=== PATIENT | male | born 1965 | race Caucasian/White ===

== ENCOUNTER → 2020-11-18 20:21 | Outpatient (CLI) | payer OTHER, MEDICAID, SELFPAY ==
--- NOTE | 2020-11-18 20:25 | DI.RAD.S_ITS ---
PROCEDURE: XR FOOT RT MIN 3V INDICATIONS: Evaluate chronic right heel pain TECHNIQUE: 3 views of the foot were acquired. COMPARISON: None. FINDINGS: Bones: No fracture. Scattered degenerative subchondral sclerosis and spurring. Plantar calcaneal spur. 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 Prominent dorsal osteophytes present at the 1st MTP joint . Chronic appearing deformity of the 5th toe proximal phalanx which is likely posttraumatic from remote injury. Soft tissues: No tibiotalar joint effusion. Achilles tendon appears normal. 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 Dictated by: Ian Rothman M.D. on 11/19/2020 at 10:06 Approved by: Ian Rothman M.D. on 11/19/2020 at 10:11
== END ==
PROVIDERS: Family Provider Family Medicine; PCP Family Medicine; Referring Provider Family Medicine; Visit Provider Family Medicine
DX: M79.671 Pain in right foot (principal); M77.31 Calcaneal spur, right foot; M19.071 Primary osteoarthritis, right ankle and foot
CPT/HCPCS: 73630

== ENCOUNTER 2021-04-09 06:31 | Emergency (ER) | payer OTHER, MEDICAID, SELFPAY ==
[2021-04-09] VITALS (18 sets, daily range): BP systolic 110–177; BP diastolic 56–92; PULSE 57–70; RESP 9–22; TEMP 36.2; O2SAT 93–100; BMI 25.0
--- NOTE | 2021-04-09 06:24 | DI.RAD.S_ITS ---
PROCEDURE: XR CHEST 1V INDICATIONS: n/v TECHNIQUE: One view of the chest was acquired. COMPARISON: [facility], CT, CT ANGIO CHEST ABDOMEN PELVIS, 04/09/2021, 7:18. FINDINGS: Surgical changes and devices: None. Lungs and pleura: Lungs are clear. No pleural effusions or pneumothorax. Mediastinum: Mediastinal contours appear normal. Heart size is normal. Bones and chest wall: No suspicious bony lesions. Overlying soft tissues appear unremarkable. IMPRESSION: No evidence acute pulmonary process. Dictated by: Alli Villanueva M.D. on 04/09/2021 at 8:11 Approved by: Alli Villanueva M.D. on 04/09/2021 at 8:12
--- NOTE | 2021-04-09 06:24 | DI.RAD.S_ITS ---
PROCEDURE: XR ABDOMEN 1V INDICATIONS: n/v TECHNIQUE: One view of the abdomen acquired. COMPARISON: None. FINDINGS: Surgical changes and devices: None. Bowel: Bowel gas pattern is normal. Soft tissues: No suspicious abdominal calcifications. Visualized solid organ contours appear normal in size. Bones: No suspicious bony lesions. IMPRESSION: Normal bowel gas pattern. Dictated by: Alli Villanueva M.D. on 04/09/2021 at 8:12 Approved by: Alli Villanueva M.D. on 04/09/2021 at 8:13
[2021-04-09 06:53] LABS: COVID19 -Nasal RAPID Negative (Negative)
--- NOTE | 2021-04-09 06:53 | ED.NAVMDI ---
HPI - Nausea/Vomiting/Diarrhea General Chief complaint: Nausea/Vomiting/Diarrhea Stated complaint: FEVER, CHILLS, N/V Time Seen by Provider: 04/09/21 06:53 Source: patient and EMS Mode of arrival: EMS Limitations: no limitations History of Present Illness HPI Narrative: Patient is a 55-year-old male with no past medical history presenting today with confusion. was sleeping in a bed he was sleeping on the couch she woke up to him. He had incontinence was very confused and bit his tongue. His he threw up 1 or 2 times this morning as well. He initially was complaining of some abdominal pain but he is no longer having abdominal pain. He did denies any chest pain shortness of breath palpitations. He said he has not been sick he was previously in his normal state of health. EMS reported that he was a little confused when they arrived to be clearing now. He denies alcohol use and any drug use he is on no medications. He does admit to drinking coffee and smoking marijuana only. Related Data Home Medications Medication Instructions Recorded Confirmed omeprazole 20 mg capsule,delayed 20 mg PO PRN PRN #0 09/09/17 01/13/21 release Allergies Allergy/AdvReac Type Severity Reaction Status Date / Time No Known Drug Allergies Allergy Verified 04/09/21 06:36 Review of Systems Review of Systems Narrative: GENERAL: Denies chills, fatigue, malaise, fever, sweats, travel HEENT: Denies sinus pain, ear pain, sore throat, difficulty swallowing, neck pain RESPIRATORY: Denies dyspnea, cough, wheezing, hemoptysis, sputum. CARDIOVASCULAR: Denies chest pain, palpitations, orthopnea, edema GASTROINTESTINAL: Denies nausea, vomiting, abdominal pain, diarrhea, constipation, melena. : Urinary incontinence MUSCULOSKELETAL: Denies weakness, joint pain, or bony pain SKIN: No rash, no erythema, no pruritus NEUROLOGIC: Confusion PSYCHIATRIC: No concerning psychosocial issues. 12 point review of systems is negative except for those stated above and HPI Patient History Medical History GERD (gastroesophageal reflux disease) Marijuana smoker Pain of right heel Tobacco use (08/21/16) Surgical History H/O hernia repair Status post appendectomy Family History Father No problems noted. Social History Smoking Status: Former smoker Smoking Status: Former smoker Substance Use Type: marijuana Exam Initial Vital Signs Initial Vital Signs: Vital Signs Temperature 97.1 F L 04/09/21 06:47 Pulse Rate 64 04/09/21 06:47 Respiratory Rate 22 04/09/21 06:47 Blood Pressure 110/56 L 04/09/21 06:47 Pulse Oximetry 97 04/09/21 06:47 GENERAL: Slightly confused 55-year-old male HEENT: Head atraumatic,EOMI, pupils reactive, face symmetric, evidence that he bit his tongue on the left side CARDIOVASCULAR: Regular rate and rhythm without murmurs, rubs or gallops. RESPIRATORY: Breath sounds equal bilaterally, no wheezes rales or rhonchi. ABDOMEN: Soft, nontender. Normoactive bowel sounds all 4 quadrants. No guarding or rebound. EXTREMITIES: Normal range of motion, no clubbing or edema. Neurovascularly intact NEUROLOGICAL: Alert and oriented x4.Normal gait and speech. Cranial nerves II through XII grossly intact. Good [id number], good [id number], strength equal bilaterally, no dysarthria or aphasia, sensation in tact to soft touch bilaterally, no visual changes, no facial droop SKIN: Warm, dry, no laceration, no petechiae, no rashes or lesions. Course Orders Ordered: ED Orders 04/09/21 11:30 Urinalysis and Microscopic Stat Urine Drug Screen, Rapid Stat Discontinued Medications Sodium Chloride (Normal Saline 0.9%) 1,000 mls @ 1,000 mls/hr IV BOLUS ONE Stop: 04/09/21 07:23 Last Infusion: 04/09/21 11:02 Dose: 0 mls/hr Documented by: Admin: 04/09/21 07:39 Dose: 1,000 mls/hr Documented by: BRIA Sodium Chloride (Normal Saline 0.9%) 2,721.54 mls @ 907.18 mls/hr 30 ml/kg infuse over 3 hr (2721.54 ml) IV NOW ONE Stop: 04/09/21 10:10 Last Admin: 04/09/21 09:13 Dose: Not Given Documented by: TOAN Piperacillin Sod/Tazobactam (Sod 4.5 gm/ Sodium Chloride) 100 mls @ 200 mls/hr IV NOW ONE Stop: 04/09/21 07:18 Last Infusion: 04/09/21 08:11 Dose: 0 mls/hr Documented by: Admin: 04/09/21 07:38 Dose: 200 mls/hr Documented by: BRIA Vancomycin HCl (Vancomycin) 1,250 mg in 250 mls @ 250 mls/hr IV NOW ONE Stop: 04/09/21 08:17 Last Admin: 04/09/21 09:12 Dose: Not Given Documented by: TOAN Morphine Sulfate (Morphine 4 Mg/Ml Inj) 4 mg IV NOW ONE Stop: 04/09/21 06:24 Last Admin: 04/09/21 07:38 Dose: 4 mg Documented by: BRIA Vital Signs Vital signs: Vital Signs - 8 hr 04/09/21 06:47 04/09/21 07:50 04/09/21 07:55 Temperature 97.1 F L Pulse Rate 64 61 57 L Respiratory Rate 22 9 L 11 L Blood Pressure 110/56 L 139/85 Pulse Oximetry 97 93 96 04/09/21 08:00 04/09/21 08:15 04/09/21 08:30 Temperature Pulse Rate 58 L 58 L 62 Respiratory Rate 12 13 18 Blood Pressure 157/86 H Pulse Oximetry 97 98 100 04/09/21 08:45 04/09/21 09:02 04/09/21 09:03 Temperature Pulse Rate 63 70 70 Respiratory Rate 19 Blood Pressure 177/92 H Pulse Oximetry 93 100 04/09/21 09:15 04/09/21 09:30 04/09/21 09:31 Temperature Pulse Rate 60 57 L 67 Respiratory Rate Blood Pressure 172/86 H Pulse Oximetry 100 100 99 04/09/21 09:45 04/09/21 10:00 04/09/21 10:15 Temperature Pulse Rate 58 L 60 60 Respiratory Rate Blood Pressure 147/79 H Pulse Oximetry 97 97 98 04/09/21 10:30 04/09/21 10:45 04/09/21 11:00 Temperature Pulse Rate 68 60 62 Respiratory Rate Blood Pressure 144/78 H 145/82 H Pulse Oximetry 98 97 96 MDM - Nausea/Vomiting/Diarrhea Lab Data Result diagrams: 04/09/21 06:43 04/09/21 06:43 Labs: Lab Results 04/09/21 04/09/21 04/09/21 Range/Units 06:20 06:43 06:43 WBC 12.7 H (4.5-11.0) X10^3/uL RBC 5.73 (4.5-5.9) X10^6/uL Hgb 17.2 (13.5-17.5) g/dL Hct 51.7 (41-53) % MCV 90.2 (80-100) fL MCH 30.0 (26-34) PG MCHC 33.3 (30-36) % RDW 13.2 (11.6-14.8) % Plt Count 245 (150-400) X10^3/uL Neut % (Auto) 84.1 H (50-75) % Lymph % (Auto) 10.9 L (25-40) % [place] % (Auto) 4.2 (3-14) % Eos % (Auto) 0.5 L (2-4) % Baso % (Auto) 0.3 (0-2) % Neut # (Auto) 59191 H (7271-2276) /uL Lymph # (Auto) 1400 (4280-1120) /uL [place] # (Auto) 500 (0-900) /uL Eos # (Auto) 100 (0-450) /uL Baso # (Auto) 0 (0-100) /uL PT (10.1-12.7) SECONDS INR (0.9-1.3) APTT (26.4-36.2) SECONDS Sodium 137 (137-145) mmol/L Potassium 4.6 (3.4-5.1) mmol/L Chloride 106 (98-107) mmol/L Carbon Dioxide 16 L (22-32) mmol/L BUN 16 (9-20) mg/dL Creatinine 1.07 (0.66-1.25) mg/dL Estimated GFR > 60.0 (>60) mL/min BUN/Creatinine Ratio 15.0 (6-22) Glucose 219 H (70-100) mg/dL Lactate (0.7-2.1) mmol/L Calcium 9.6 (8.4-10.2) mg/dL Total Bilirubin 0.9 (0.2-1.3) mg/dL AST 37 (17-59) IU/L ALT 37 (<50) IU/L Alkaline Phosphatase 87 (38-126) U/L Total Creatine Kinase 177 H (55-170) U/L CK-MB (CK-2) 1.44 (<2.37) ng/mL CK-MB (CK-2) Rel Index 0.8 L (1.5-5.0) % Troponin I < 0.012 (0.01-0.034) ng/mL NT-Pro-B Natriuret Pep 71 (<125) pg/mL Total Protein 8.1 (6.3-8.2) g/dL Albumin 4.7 (3.5-5.0) g/dL Globulin 3.4 (1.7-4.1) g/dL Albumin/Globulin Ratio 1.4 (1.0-2.8) Lipase 55 (23-300) U/L Prolactin (3.7-17.9) ng/mL Urine Color Urine Appearance Urine pH (4.5-8.0) Ur Specific [place] (1.000-1.035) Urine Protein (Negative) Urine Glucose (UA) (Negative) g/dL Urine Ketones (NEGATIVE) Urine Occult Blood (Negative) Urine Nitrate (Negative) Urine Bilirubin (NEGATIVE) Urine Urobilinogen (0.2) E.U./dL Ur Leukocyte Esterase (NEGATIVE) Urine RBC (0-5/HPF) Urine WBC (0-5/HPF) Urine Bacteria (None) Ur Culture Indicated? U Opiates 300ng/mL cut (Negative) Ur Oxycodone Screen (Negative) Urine Methadone Screen (Negative) Ur Barbiturates Screen (Negative) U Tricyclic Antidepress (Negative) Ur Phencyclidine Scrn (Negative) Ur Amphetamines Screen (Negative) U Methamphetamines Scrn (Negative) Ur MDMA Scrn (Ecstasy) (Negative) U Benzodiazepines Scrn (Negative) Urine Cocaine Screen (Negative) U Marijuana (THC) Screen (Negative) Ethyl Alcohol ( - 10) mg/dL SARS-CoV-2 (PCR) Negative (Negative) Blood Type Antibody Screen 04/09/21 04/09/21 04/09/21 Range/Units 06:43 06:43 06:43 WBC (4.5-11.0) X10^3/uL RBC (4.5-5.9) X10^6/uL Hgb (13.5-17.5) g/dL Hct (41-53) % MCV (80-100) fL MCH (26-34) PG MCHC (30-36) % RDW (11.6-14.8) % Plt Count (150-400) X10^3/uL Neut % (Auto) (50-75) % Lymph % (Auto) (25-40) % [place] % (Auto) (3-14) % Eos % (Auto) (2-4) % Baso % (Auto) (0-2) % Neut # (Auto) (0415-2244) /uL Lymph # (Auto) (2855-6796) /uL [place] # (Auto) (0-900) /uL Eos # (Auto) (0-450) /uL Baso # (Auto) (0-100) /uL PT 12.4 (10.1-12.7) SECONDS INR 1.1 (0.9-1.3) APTT 29 (26.4-36.2) SECONDS Sodium (137-145) mmol/L Potassium (3.4-5.1) mmol/L Chloride (98-107) mmol/L Carbon Dioxide (22-32) mmol/L BUN (9-20) mg/dL Creatinine (0.66-1.25) mg/dL Estimated GFR (>60) mL/min BUN/Creatinine Ratio (6-22) Glucose (70-100) mg/dL Lactate 6.8 H* (0.7-2.1) mmol/L Calcium (8.4-10.2) mg/dL Total Bilirubin (0.2-1.3) mg/dL AST (17-59) IU/L ALT (<50) IU/L Alkaline Phosphatase (38-126) U/L Total Creatine Kinase (55-170) U/L CK-MB (CK-2) (<2.37) ng/mL CK-MB (CK-2) Rel Index (1.5-5.0) % Troponin I (0.01-0.034) ng/mL NT-Pro-B Natriuret Pep (<125) pg/mL Total Protein (6.3-8.2) g/dL Albumin (3.5-5.0) g/dL Globulin (1.7-4.1) g/dL Albumin/Globulin Ratio (1.0-2.8) Lipase (23-300) U/L Prolactin (3.7-17.9) ng/mL Urine Color Urine Appearance Urine pH (4.5-8.0) Ur Specific [place] (1.000-1.035) Urine Protein (Negative) Urine Glucose (UA) (Negative) g/dL Urine Ketones (NEGATIVE) Urine Occult Blood (Negative) Urine Nitrate (Negative) Urine Bilirubin (NEGATIVE) Urine Urobilinogen (0.2) E.U./dL Ur Leukocyte Esterase (NEGATIVE) Urine RBC (0-5/HPF) Urine WBC (0-5/HPF) Urine Bacteria (None) Ur Culture Indicated? U Opiates 300ng/mL cut (Negative) Ur Oxycodone Screen (Negative) Urine Methadone Screen (Negative) Ur Barbiturates Screen (Negative) U Tricyclic Antidepress (Negative) Ur Phencyclidine Scrn (Negative) Ur Amphetamines Screen (Negative) U Methamphetamines Scrn (Negative) Ur MDMA Scrn (Ecstasy) (Negative) U Benzodiazepines Scrn (Negative) Urine Cocaine Screen (Negative) U Marijuana (THC) Screen (Negative) Ethyl Alcohol ( - 10) mg/dL SARS-CoV-2 (PCR) (Negative) Blood Type O Positive Antibody Screen Negative 04/09/21 04/09/21 04/09/21 Range/Units 06:43 07:34 07:34 WBC (4.5-11.0) X10^3/uL RBC (4.5-5.9) X10^6/uL Hgb (13.5-17.5) g/dL Hct (41-53) % MCV (80-100) fL MCH (26-34) PG MCHC (30-36) % RDW (11.6-14.8) % Plt Count (150-400) X10^3/uL Neut % (Auto) (50-75) % Lymph % (Auto) (25-40) % [place] % (Auto) (3-14) % Eos % (Auto) (2-4) % Baso % (Auto) (0-2) % Neut # (Auto) (4116-4482) /uL Lymph # (Auto) (7313-3945) /uL [place] # (Auto) (0-900) /uL Eos # (Auto) (0-450) /uL Baso # (Auto) (0-100) /uL PT (10.1-12.7) SECONDS INR (0.9-1.3) APTT (26.4-36.2) SECONDS Sodium (137-145) mmol/L Potassium (3.4-5.1) mmol/L Chloride (98-107) mmol/L Carbon Dioxide (22-32) mmol/L BUN (9-20) mg/dL Creatinine (0.66-1.25) mg/dL Estimated GFR (>60) mL/min BUN/Creatinine Ratio (6-22) Glucose (70-100) mg/dL Lactate (0.7-2.1) mmol/L Calcium (8.4-10.2) mg/dL Total Bilirubin (0.2-1.3) mg/dL AST (17-59) IU/L ALT (<50) IU/L Alkaline Phosphatase (38-126) U/L Total Creatine Kinase (55-170) U/L CK-MB (CK-2) (<2.37) ng/mL CK-MB (CK-2) Rel Index (1.5-5.0) % Troponin I (0.01-0.034) ng/mL NT-Pro-B Natriuret Pep 66 (<125) pg/mL Total Protein (6.3-8.2) g/dL Albumin (3.5-5.0) g/dL Globulin (1.7-4.1) g/dL Albumin/Globulin Ratio (1.0-2.8) Lipase (23-300) U/L Prolactin 21.8 H (3.7-17.9) ng/mL Urine Color Urine Appearance Urine pH (4.5-8.0) Ur Specific [place] (1.000-1.035) Urine Protein (Negative) Urine Glucose (UA) (Negative) g/dL Urine Ketones (NEGATIVE) Urine Occult Blood (Negative) Urine Nitrate (Negative) Urine Bilirubin (NEGATIVE) Urine Urobilinogen (0.2) E.U./dL Ur Leukocyte Esterase (NEGATIVE) Urine RBC (0-5/HPF) Urine WBC (0-5/HPF) Urine Bacteria (None) Ur Culture Indicated? U Opiates 300ng/mL cut (Negative) Ur Oxycodone Screen (Negative) Urine Methadone Screen (Negative) Ur Barbiturates Screen (Negative) U Tricyclic Antidepress (Negative) Ur Phencyclidine Scrn (Negative) Ur Amphetamines Screen (Negative) U Methamphetamines Scrn (Negative) Ur MDMA Scrn (Ecstasy) (Negative) U Benzodiazepines Scrn (Negative) Urine Cocaine Screen (Negative) U Marijuana (THC) Screen (Negative) Ethyl Alcohol < 10 ( - 10) mg/dL SARS-CoV-2 (PCR) (Negative) Blood Type Antibody Screen 04/09/21 04/09/21 04/09/21 Range/Units 09:20 11:30 11:30 WBC (4.5-11.0) X10^3/uL RBC (4.5-5.9) X10^6/uL Hgb (13.5-17.5) g/dL Hct (41-53) % MCV (80-100) fL MCH (26-34) PG MCHC (30-36) % RDW (11.6-14.8) % Plt Count (150-400) X10^3/uL Neut % (Auto) (50-75) % Lymph % (Auto) (25-40) % [place] % (Auto) (3-14) % Eos % (Auto) (2-4) % Baso % (Auto) (0-2) % Neut # (Auto) (4057-8917) /uL Lymph # (Auto) (2074-6762) /uL [place] # (Auto) (0-900) /uL Eos # (Auto) (0-450) /uL Baso # (Auto) (0-100) /uL PT (10.1-12.7) SECONDS INR (0.9-1.3) APTT (26.4-36.2) SECONDS Sodium (137-145) mmol/L Potassium (3.4-5.1) mmol/L Chloride (98-107) mmol/L Carbon Dioxide (22-32) mmol/L BUN (9-20) mg/dL Creatinine (0.66-1.25) mg/dL Estimated GFR (>60) mL/min BUN/Creatinine Ratio (6-22) Glucose (70-100) mg/dL Lactate 2.4 H (0.7-2.1) mmol/L Calcium (8.4-10.2) mg/dL Total Bilirubin (0.2-1.3) mg/dL AST (17-59) IU/L ALT (<50) IU/L Alkaline Phosphatase (38-126) U/L Total Creatine Kinase (55-170) U/L CK-MB (CK-2) (<2.37) ng/mL CK-MB (CK-2) Rel Index (1.5-5.0) % Troponin I (0.01-0.034) ng/mL NT-Pro-B Natriuret Pep (<125) pg/mL Total Protein (6.3-8.2) g/dL Albumin (3.5-5.0) g/dL Globulin (1.7-4.1) g/dL Albumin/Globulin Ratio (1.0-2.8) Lipase (23-300) U/L Prolactin (3.7-17.9) ng/mL Urine Color Yellow Urine Appearance Clear Urine pH 6.5 (4.5-8.0) Ur Specific [place] 1.010 (1.000-1.035) Urine Protein Trace H (Negative) Urine Glucose (UA) Negative (Negative) g/dL Urine Ketones Negative (NEGATIVE) Urine Occult Blood Trace-lysed (Negative) Urine Nitrate Negative (Negative) Urine Bilirubin Negative (NEGATIVE) Urine Urobilinogen 0.2 (0.2) E.U./dL Ur Leukocyte Esterase Negative (NEGATIVE) Urine RBC 1-5/hpf (0-5/HPF) Urine WBC None seen (0-5/HPF) Urine Bacteria None seen (None) Ur Culture Indicated? Cult not indicated U Opiates 300ng/mL cut Positive H (Negative) Ur Oxycodone Screen Negative (Negative) Urine Methadone Screen Negative (Negative) Ur Barbiturates Screen Negative (Negative) U Tricyclic Antidepress Negative (Negative) Ur Phencyclidine Scrn Negative (Negative) Ur Amphetamines Screen Negative (Negative) U Methamphetamines Scrn Negative (Negative) Ur MDMA Scrn (Ecstasy) Negative (Negative) U Benzodiazepines Scrn Negative (Negative) Urine Cocaine Screen Negative (Negative) U Marijuana (THC) Screen Positive H (Negative) Ethyl Alcohol ( - 10) mg/dL SARS-CoV-2 (PCR) (Negative) Blood Type Antibody Screen Imaging Data CT scan - abdomen/pelvis: Radiologist's Impression: PROCEDURE: CT ANGIO CHEST ABDOMEN PELVIS INDICATIONS: n/v/d, fever/ chest/abd/back pain TECHNIQUE: Precontrast 5 mm thick sections acquired from the lung apices to the iliac crests. After the administration of intravenous contrast, 2.5 mm thick sections again acquired from the lung apices to the iliac crests. Maximum intensity projection (MIP) oblique sagittal and coronal reformats were then acquired. For radiation dose reduction, the following was used: automated exposure control. COMPARISON: None. FINDINGS: Image quality: Excellent. AORTA and its attachments: And its attachme aneurysmal dilatation of the ascending aorta, measuring 4.3 cm. The descending thoracic aorta has a normal caliber. No dissection. Classic three-vessel arch anatomy. Great vessel origins are widely patent. Celiac, SMA, bilateral renal arteries, and YESSENIA are widely patent. Abdominal aorta has a normal caliber. No dissection. Mild atherosclerotic calcifications. Bilateral iliacs and common femorals are patent. CHEST: Lungs and pleura: No acute airspace opacities. 5 mm left lower lobe pulmonary nodule abutting the fissure on image 144/6. 3 mm subpleural pulmonary nodule, left upper lobe, image 161/6. 3 mm subpleural pulmonary nodule, right middle lobe, image 159/6. 3 mm subpleural pulmonary nodule, right lower lobe, image 186/6. 5 mm subpleural pulmonary nodule, left lower lobe, image 187/6. No pleural effusions or pneumothorax. Central and peripheral airways are patent and normal in caliber. Mediastinum: Heart size is normal. No pericardial effusion. No mediastinal or hilar adenopathy by size criteria. Central pulmonary arteries are normal in size. Esophagus is normal in caliber. No hiatal hernias. Bones and chest wall: No axillary adenopathy by size criteria. Thyroid gland is unremarkable as visualized. No suspicious bony lesions. No vertebral body compression fractures. ABDOMEN: Vasculature: Celiac trunk and mesenteric arteries are patent. Renal arteries are also patent. Solid organs: Liver is normal in size and enhancement. Gallbladder is unremarkable . Biliary system is non dilated. Pancreas enhances normally. Spleen is normal in size and enhancement. No adrenal nodules. Both kidneys are normal in size and enhancement, without hydronephrosis. Peritoneum and bowel: No free fluid or air. Bowel loops are normal in caliber and wall thickness. Scattered colonic diverticulosis. Nodes and vessels: No retroperitoneal or mesenteric adenopathy by size criteria. Inferior vena cava is normal in morphology. Miscellaneous: No ventral hernias. PELVIS: Genitourinary: Bladder wall thickness is normal. Miscellaneous: No inguinal hernias or adenopathy. No ventral hernias. Bones: No suspicious bony lesions. No vertebral body compression fractures. Lumbar degenerative change with canal stenosis at L4-L5. Multiple mild chronic compressions, including T4, T5, T8, T9, T11, and T12. IMPRESSION: 1. Aneurysmal dilatation of the ascending aorta, measuring 4.3 cm. The aorta is otherwise unremarkable. 2. Multiple bilateral noncalcified pulmonary nodules, the largest of which measures 5 mm. Please see chart below for follow-up recommendations. 3. No evidence of acute pulmonary process. 4. No evidence of acute abdominal process. 5. Lumbar degenerative change with canal stenosis at L4-L5. 6. Scattered colonic diverticulosis. 7. Multiple chronic compression fractures. Consider DEXA bone densitometry. Fleischner Society criteria for SOLID lung nodule followup. Nodule size (mm)Low-risk patientHigh-risk patient<6 (single or multiple)No routine followup.Optional CT at 12 months. 6-8 (single or multiple)CT at 6-12 months, then optional CT at 18-24 mo.CT at 6-12 months, then CT at 18-24 months. >8 (single)CT at 3 months, PET-CT, or biopsy. Same as for low-risk pts. >8 (multiple)CT at 3-6 months, then optional CT at 18-24 mo.CT at 3-6 months, then CT at 18-24 months. Fleischner Society criteria for SUB-SOLID lung nodule followup. Solitary pure ground-glass nodules<6 mm (ground glass or part solid)No followup needed. 6 mm or larger (ground glass)CT at 6-12 months to confirm persistence, then CT every 2 years until 5 years.6 mm or larger (part solid)CT at 3-6 months to confirm persistence, then annual CT until 5 years if unchanged and solid component remains <6 mm. Multiple sub-solid nodules<6 mmCT at 3-6 months, then CT consider at 2 & 4 years for high risk patients. [address] at 3-6 months. Subsequent management based on most suspicious lesions. Recommendations do not apply to lung cancer screening, patients with immunosuppression, or patients with known primary cancer. Dictated by: Alli Villanueva M.D. on 04/09/2021 at 7:49 Approved by: Alli Villanueva M.D. on 04/09/2021 at 8:01 ECG Data Interpretation: Normal sinus rhythm rate 59 p.r. interval 168 QRS [address] changes or T-wave inversions no priors MDM Narrative Medical decision making narrative: Patient initially very difficult to get information out of. He was confused. Did not actually find out that he bit his tongue until later. His lactate came back critical at 6.8. He has mild leukocytosis afebrile sepsis antibiotics and fluids were immediately started although he was not tachycardic or hypotensive his. Prolactin came back slightly elevated at 21 with patient's history of biting tongue urinary incontinence slightly elevated prolactin and elevated lactate I suspect the patient had a first-time seizure. However at this time I am not sure why. Patient's chest x-ray did look abnormal, CT angio of chest abdomen pelvis was ordered and he is found have an incidental ascending thoracic aneurysm of 4.3 cm. He adamantly denies any chest pain. [id number] Dr. Fernando CVT at [facility] recommends referral to aneurysm screening clinic [phone] Discharge Plan Departure Patient Disposition: Home Clinical Impression: New onset seizure, Aneurysm of ascending aorta Instructions: DI for Seizure Disorder -- Adult Activity Restrictions/Additional Instructions: *You have been diagnosed with new onset seizure and ascending thoracic aneurysm *What to do: YOU ARE NOT ALLOWED TO DRIVE UNTIL EVALUATED BY NEUROLOGY Be sure to sleep regularly and eat regularly. You will need follow-up with those cardiovascular thoracic surgery and Neurology. Blood work scans today are overall reassuring. *Continue to take medications as directed *Follow up with your primary care provider in 2-[address] Fernandez is aware of findings today and will be calling to schedule an appointment. *Return to ER if you should have recurrent seizure, any chest pain palpitations passing out or any new, worsening or concerning symptoms Prescriptions: No Action omeprazole 20 MG capsule,delayed release(DR/EC) 20 mg PO PRN PRNQty: 0 RF: 0 Referrals: Serjio Fernandez MD [Primary Care Provider] -
[2021-04-09 06:57] LABS: Add Manual Diff / Slide Review NO; Basophils Absolute Auto 0 /uL (0-100); Basophils Percent Auto 0.3 % (0-2); Eosinophils Absolute Auto 100 /uL (0-450); Eosinophils Percent Auto 0.5 % (2-4); Hematocrit 51.7 % (41-53); Hemoglobin 17.2 g/dL (13.5-17.5); Lymphocytes Absolute Auto 1400 /uL (1100-4500); Lymphocytes Percent Auto 10.9 % (25-40); Mean Corpuscular HGB Conc 33.3 % (30-36); Mean Corpuscular Volume 90.2 fL (80-100); Monocytes Absolute Auto 500 /uL (0-900); Monocytes Percent Auto 4.2 % (3-14); Neutrophils Absolute Auto 10600 /uL (1500-7000); Neutrophils Percent Auto 84.1 % (50-75); Platelet Count 245 X10^3/uL (150-400); Red Blood Cell Count 5.73 X10^6/uL (4.5-5.9); Red Cell Distribution Width 13.2 % (11.6-14.8); White Blood Cell Count 12.7 X10^3/uL (4.5-11.0)
[2021-04-09 07:01] LABS: INR 1.1 (0.9-1.3); Prothrombin Time 12.4 SECONDS (10.1-12.7)
[2021-04-09 07:04] LABS: PTT Partial Thromboplastin Tim 29 SECONDS (26.4-36.2)
[2021-04-09 07:07] LABS: Ethanol (ETOH) < 10 mg/dL
[2021-04-09 07:08] LABS: Alanine Aminotransferase 37 IU/L (<50); Albumin 4.7 g/dL (3.5-5.0); Albumin Globulin Ratio 1.4 (1.0-2.8); Alkaline Phosphatase 87 U/L (38-126); Aspartate Aminotransferase 37 IU/L (17-59); Bilirubin Total 0.9 mg/dL (0.2-1.3); Blood Urea Nitrogen 16 mg/dL (9-20); Calcium 9.6 mg/dL (8.4-10.2); Carbon Dioxide 16 mmol/L (22-32); Chloride 106 mmol/L (98-107); Creatine Kinase 177 U/L (55-170); Estimated Glomerular Filt Rate > 60.0 mL/min (>60); Globulin 3.4 g/dL (1.7-4.1); Glucose 219 mg/dL (70-100); Lipase 55 U/L (23-300); Potassium 4.6 mmol/L (3.4-5.1); Sodium 137 mmol/L (137-145); Total Protein 8.1 g/dL (6.3-8.2)
[2021-04-09 07:10] LABS: Lactate (Lactic Acid) 6.8 mmol/L (0.7-2.1)
--- NOTE | 2021-04-09 07:13 | DI.CT.S_ITS ---
PROCEDURE: CT ANGIO CHEST ABDOMEN PELVIS INDICATIONS: n/v/d, fever/ chest/abd/back pain TECHNIQUE: Precontrast 5 mm thick sections acquired from the lung apices to the iliac crests. After the administration of intravenous contrast, 2.5 mm thick sections again acquired from the lung apices to the iliac crests. Maximum intensity projection (MIP) oblique sagittal and coronal reformats were then acquired. For radiation dose reduction, the following was used: automated exposure control. COMPARISON: None. FINDINGS: Image quality: Excellent. AORTA and its attachments: And its attachme aneurysmal dilatation of the ascending aorta, measuring 4.3 cm. The descending thoracic aorta has a normal caliber. No dissection. Classic three-vessel arch anatomy. Great vessel origins are widely patent. Celiac, SMA, bilateral renal arteries, and YESSENIA are widely patent. Abdominal aorta has a normal caliber. No dissection. Mild atherosclerotic calcifications. Bilateral iliacs and common femorals are patent. CHEST: Lungs and pleura: No acute airspace opacities. 5 mm left lower lobe pulmonary nodule abutting the fissure on image 144/6. 3 mm subpleural pulmonary nodule, left upper lobe, image 161/6. 3 mm subpleural pulmonary nodule, right middle lobe, image 159/6. 3 mm subpleural pulmonary nodule, right lower lobe, image 186/6. 5 mm subpleural pulmonary nodule, left lower lobe, image 187/6. No pleural effusions or pneumothorax. Central and peripheral airways are patent and normal in caliber. Mediastinum: Heart size is normal. No pericardial effusion. No mediastinal or hilar adenopathy by size criteria. Central pulmonary arteries are normal in size. Esophagus is normal in caliber. No hiatal hernias. Bones and chest wall: No axillary adenopathy by size criteria. Thyroid gland is unremarkable as visualized. No suspicious bony lesions. No vertebral body compression fractures. ABDOMEN: Vasculature: Celiac trunk and mesenteric arteries are patent. Renal arteries are also patent. Solid organs: Liver is normal in size and enhancement. Gallbladder is unremarkable . Biliary system is non dilated. Pancreas enhances normally. Spleen is normal in size and enhancement. No adrenal nodules. Both kidneys are normal in size and enhancement, without hydronephrosis. Peritoneum and bowel: No free fluid or air. Bowel loops are normal in caliber and wall thickness. Scattered colonic diverticulosis. Nodes and vessels: No retroperitoneal or mesenteric adenopathy by size criteria. Inferior vena cava is normal in morphology. Miscellaneous: No ventral hernias. PELVIS: Genitourinary: Bladder wall thickness is normal. Miscellaneous: No inguinal hernias or adenopathy. No ventral hernias. Bones: No suspicious bony lesions. No vertebral body compression fractures. Lumbar degenerative change with canal stenosis at L4-L5. Multiple mild chronic compressions, including T4, T5, T8, T9, T11, and T12. IMPRESSION: 1. Aneurysmal dilatation of the ascending aorta, measuring 4.3 cm. The aorta is otherwise unremarkable. 2. Multiple bilateral noncalcified pulmonary nodules, the largest of which measures 5 mm. Please see chart below for follow-up recommendations. 3. No evidence of acute pulmonary process. 4. No evidence of acute abdominal process. 5. Lumbar degenerative change with canal stenosis at L4-L5. 6. Scattered colonic diverticulosis. 7. Multiple chronic compression fractures. Consider DEXA bone densitometry. Fleischner Society criteria for SOLID lung nodule followup. Nodule size (mm)Low-risk patientHigh-risk patient<6 (single or multiple)No routine followup.Optional CT at 12 months. 6-8 (single or multiple)CT at 6-12 months, then optional CT at 18-24 mo.CT at 6-12 months, then CT at 18-24 months. >8 (single)CT at 3 months, PET-CT, or biopsy. Same as for low-risk pts. >8 (multiple)CT at 3-6 months, then optional CT at 18-24 mo.CT at 3-6 months, then CT at 18-24 months. Fleischner Society criteria for SUB-SOLID lung nodule followup. Solitary pure ground-glass nodules<6 mm (ground glass or part solid)No followup needed. 6 mm or larger (ground glass)CT at 6-12 months to confirm persistence, then CT every 2 years until 5 years.6 mm or larger (part solid)CT at 3-6 months to confirm persistence, then annual CT until 5 years if unchanged and solid component remains <6 mm. Multiple sub-solid nodules<6 mmCT at 3-6 months, then CT consider at 2 & 4 years for high risk patients. [address] at 3-6 months. Subsequent management based on most suspicious lesions. Recommendations do not apply to lung cancer screening, patients with immunosuppression, or patients with known primary cancer. Dictated by: Alli Villanueva M.D. on 04/09/2021 at 7:49 Approved by: Alli Villanueva M.D. on 04/09/2021 at 8:01
[2021-04-09 07:20] LABS: NT-proBNP (BNP-Adult 18+) 71 pg/mL (<125); Troponin I < 0.012 ng/mL (0.01-0.034)
[2021-04-09 07:23] LABS: CKMB % Relative Index 0.8 % (1.5-5.0); Creatine Kinase MB 1.44 ng/mL (<2.37); HEMOLYSIS 20 (0-50)
[2021-04-09] MEDS: MORPHINE 4 MG/ML INJ IV (07:38)
[2021-04-09] MEDS: PIPERACILLIN/TAZO 4.5 GM in SODIUM CHLORIDE 0.9% 100 ML 200 ML IV (07:38)
[2021-04-09] MEDS: SODIUM CHLORIDE 0.9% 1,000 ML 1000 ML IV (07:39)
[2021-04-09 07:52] LABS: NT-proBNP (BNP-Adult 18+) 66 pg/mL (<125)
[2021-04-09 08:00] LABS: Prolactin 21.8 ng/mL (3.7-17.9)
[2021-04-09 08:50] LABS: Reflexed Lactate in 2 Hours Y
--- NOTE | 2021-04-09 09:02 | DI.CT.S_ITS ---
PROCEDURE: CT HEAD/BRAIN WO CON INDICATIONS: newonset seizure TECHNIQUE: Noncontrast 4.5 mm thick angled axial sections acquired from the foramen magnum to the vertex, with coronal and sagittal reformats. For radiation dose reduction, the following was used: automated exposure control, adjustment of mA and/or kV according to patient size. COMPARISON: None. FINDINGS: Image quality: Excellent. CSF spaces: Basal cisterns are patent. No extra-axial fluid collections. Ventricles are normal in size and shape. Brain: No midline shift. No intracranial masses or hemorrhage. Felix-white matter interface is normal. Skull and face: Calvarium and visualized facial bones are intact, without suspicious lesions. Sinuses: Visualized sinuses and mastoids are clear. IMPRESSION: 1. No acute intracranial abnormalities. Dictated by: Saul Coleman M.D. on 04/09/2021 at 9:05 Approved by: Saul Coleman M.D. on 04/09/2021 at 9:13
[2021-04-09 09:33] LABS: Lactate 2HR (Lactic Acid Rflx) 2.4 mmol/L (0.7-2.1)
--- NOTE | 2021-04-09 11:28 | PC.NURSE ---
pt c/o right shoulder pain which he states has occurred before. Pt + [facility] distally. Pt refused offer of x ray, further evaluation, states he wants to go home. Currently a/o x 4.
[2021-04-09 11:35] LABS: Bacteria Urine None Seen; WBC Urine None Seen (0-5/HPF)
[2021-04-09 11:36] LABS: Appearance Urine UA CLEAR; Bilirubin Urine UA NEGATIVE (NEGATIVE); Color Urine UA YELLOW; Glucose Urine UA NEGATIVE (Negative); Ketones Urine UA NEGATIVE (NEGATIVE); Leukocyte Esterase Urine UA NEGATIVE (NEGATIVE); Nitrite Urine UA NEGATIVE (Negative); Occult Blood Urine UA TRACE-LYSED (Negative); Protein Urine UA TRACE (Negative); Ur Creatinine Normal (Normal); Ur Specific Gravity Normal (Normal); Urine pH Normal (Normal); Urobilinogen Urine UA 0.2 E.U./dL (0.2); pH Urine UA 6.5 (4.5-8.0)
[2021-04-09 11:39] LABS: UR Morphine/Opiate cutoff 300 Positive (Negative); Urine Amphetamines Negative (Negative); Urine Barbiturates Negative (Negative); Urine Benzodiazepines Negative (Negative); Urine Cocaine Negative (Negative); Urine MDMA Negative (Negative); Urine Methadone Negative (Negative); Urine Methamphetamines Negative (Negative); Urine Oxycodone Negative (Negative); Urine Phencyclidine Negative (Negative); Urine Tetrahydrocannabinol Positive (Negative); Urine Tricyclic Antidepressant Negative (Negative)
[2021-04-09 11:43] LABS: Culture Indicated Urine Cult Not Indicated; RBC Urine 1-5/HPF (0-5/HPF)
== END 2021-04-09 11:36 | disposition home or self-care (01) ==
PROVIDERS: Emergency Medicine; Emergency Provider Emergency Medicine; Family Provider Family Medicine; PCP Family Medicine
DX: R56.9 Unspecified convulsions (principal); I71.2 Thoracic aortic aneurysm, without rupture; R05 Cough; Z20.822 Contact with and (suspected) exposure to COVID-19
CPT/HCPCS: 36415; 70450; 71045; 71275; 74018; 74174; 80053; 80305; 80320; 81001; 82550; 82553; 83605; 83690; 83880; 84146; 84484; 85025; 85610; 85730; 86850; 86900; 86901; 87040; 87635; 93005; 93010; 96361; 96365; 96375; 99285; C9803; J2270; J2543

== ENCOUNTER → 2021-04-29 16:31 | Outpatient (CLI) | payer OTHER, MEDICAID, SELFPAY ==
--- NOTE | 2021-04-29 16:33 | DI.RAD.S_ITS ---
PROCEDURE: XR SHOULDER RT MIN 2V INDICATIONS: right shoulder pain after possible seizure TECHNIQUE: 3 views of the shoulder were acquired. COMPARISON: None. FINDINGS: Bones: No fractures or dislocations. No suspicious bony lesions. Visualized ribs appear intact. Moderate acromioclavicular and mild glenohumeral joint space narrowing with periarticular osteophyte formation. Soft tissues: No suspicious soft tissue calcifications. IMPRESSION: Moderate acromioclavicular and mild glenohumeral joint degeneration. Dictated by: Ryland Lanza [facility] Interpreted: Gene Meyer MD on 04/29/2021 at 16:44 Transcribed by: MAYITO on 04/29/2021 at 16:44 Approved by: Gene Meyer M.D. on 04/29/2021 at 17:15
[2021-04-29 17:24] LABS: Add Manual Diff / Slide Review NO; Basophils Absolute Auto 0 /uL (0-100); Basophils Percent Auto 0.4 % (0-2); Eosinophils Absolute Auto 200 /uL (0-450); Hematocrit 45.1 % (41-53); Lymphocytes Absolute Auto 2100 /uL (1100-4500); Lymphocytes Percent Auto 27.4 % (25-40); Mean Corpuscular HGB Conc 33.3 % (30-36); Mean Corpuscular Hemoglobin 29.9 PG (26-34); Mean Corpuscular Volume 89.8 fL (80-100); Monocytes Absolute Auto 600 /uL (0-900); Monocytes Percent Auto 7.1 % (3-14); Neutrophils Absolute Auto 4900 /uL (1500-7000); Neutrophils Percent Auto 63.1 % (50-75); Platelet Count 269 X10^3/uL (150-400); Red Blood Cell Count 5.03 X10^6/uL (4.5-5.9); Red Cell Distribution Width 13.5 % (11.6-14.8); White Blood Cell Count 7.8 X10^3/uL (4.5-11.0)
[2021-04-29 17:37] LABS: Hemoglobin A1C% w Est Avg Glu 5.6 % (4.0-6.0)
[2021-04-29 18:22] LABS: Prolactin 7.4 ng/mL (3.7-17.9)
== END ==
PROVIDERS: Family Provider Family Medicine; PCP Family Medicine; Referring Provider Family Medicine; Visit Provider Family Medicine
DX: M25.511 Pain in right shoulder (principal); M19.011 Primary osteoarthritis, right shoulder; R56.9 Unspecified convulsions; R73.9 Hyperglycemia, unspecified; G89.29 Other chronic pain
CPT/HCPCS: 36415; 73030; 83036; 84146; 85025

== ENCOUNTER 2021-06-06 13:45 | Outpatient (RCR) | payer OTHER, MEDICAID, SELFPAY ==
--- NOTE | 2021-05-08 15:06 | PT.OTN ---
Current Diagnoses Other chronic pain (05/08/21) Pain in right shoulder (05/08/21) Wedge compression fracture of unspecified thoracic vertebra, initial encounter for closed fracture (05/08/21) Other injury of muscle(s) and tendon(s) of the rotator cuff of right shoulder, subsequent encounter (05/08/21) Physical Therapy Treatment Note PT-OP-A Visit Information Start: 05/08/21 12:39 Freq: Status: Active Protocol: Document 05/08/21 11:15 DCW (Rec: 05/08/21 12:44 DCW [id number]) Out-Patient Physical Therapy Visit Information Visit Information Visit Type Initial Evaluation Visit Start Time 11:15 Visit Stop Time 11:55 Total Visit Minutes 40 Visit Number 1 Number of CHOCOLATE DIPPER Visits 0 Evaluation Information Evaluation Date 05/08/21 PT-OP-B Current Condition Start: 05/08/21 12:39 Freq: Status: Active Protocol: Document 05/08/21 11:15 DCW (Rec: 05/08/21 12:58 DCW [id number]) Current Condition History of Current Condition Onset Date 04/08/21 Current Complaints Right shoulder pain, tightness History of Current Condition Pt is a 55 year old male presenting with a one month history of very unusual right shoulder pain. Pt reports he fell asleep on a cot in his office on 04/08/21 with his right arm hanging out over the edge and the metal bar of the cot was along his shoulder. Sometime while he slept, he ended up having a seizure, and his next memory is waking up in the hospital 14 hours later . Admits that immediately upon waking up, he noted severe right shoulder pain. 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 Pt describes it as gradual pain building over a few days, all his muscles in his right shoulder, neck, and under his arm around the front of his torso get tighter and tighter, his usual tinnitus goes away, and then he'll turn his head, hear his neck pop, and suddenly everything goes right back to normal, muscles relax , and his tinnitus returns. He 'll feel better for a few days , until it all starts over again. 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 Prior Treatments and Tests Imaging when at ER following seizure uncovered multiple mild, chronic thoracic compression fractures Personal Factors Other Personal Factors That May Effect Newly diagnosed seizures, Therapy/Recovery thoracic compression fractures , Aneurysmal dilatation PT-OP-C Subjective Start: 05/08/21 12:39 Freq: Status: Active Protocol: Document 05/08/21 11:15 DCW (Rec: 05/08/21 14:44 DCW [id number]) OP-PT Subjective Patient Comments Patient Comments I'm not really worried about this run of the mill shoulder pain, my shoulders have been screwed up for a while. This new stuff is something different. Patient Questionnaires Quick Dash- Upper Extremity Quick Dash UE Score 68.18% Quick Dash UE Impairment 60 to 79% Impaired (Score 60- 79) OP-PT Pain Assessment Pain Assessment Grid Paper Pain Assessment Grid Completed Yes Location Right Back Intensity 5 Scale Used Numeric (0 - 10) Description Radiating,Tightness,Throbbing PT-OP-F Manual Assessment Start: 05/08/21 12:39 Freq: Status: Active Protocol: Document 05/08/21 11:15 DCW (Rec: 05/08/21 14:44 DCW [id number]) Manual Assessments Soft Tissue Assessment Soft Tissue Mobility Assessment Severe tightness through right lat, lower trap, teres major resulting in depression and counter clockwise rotation of right scapula PT-OP-J Posture/Palpation/Skin Start: 05/08/21 14:41 Freq: Status: Active Protocol: Document 05/08/21 11:15 DCW (Rec: 05/08/21 14:48 DCW [id number]) Posture Evaluation Position Sitting Evaluation View Posterior Scapula Posture (R) Rotated Down,(R) Depressed Comments Posture Comments Scapula positioning measured distance from spine: At inferior angle: right 19 cm , left 14 cm At spine of scapula: right 9 cm, left 8.1 cm Right spine of scapula depressed 4 cm vs left PT-OP-K Range of Motion Start: 05/08/21 12:39 Freq: Status: Active Protocol: Document 05/08/21 11:15 DCW (Rec: 05/08/21 14:44 DCW [id number]) Shoulder Goniometric Range of Motion Shoulder Right Active Shoulder ROM WFL Yes Comments Pain at end range PT-OP-L Special Tests Start: 05/08/21 12:39 Freq: Status: Active Protocol: Document 05/08/21 11:15 DCW (Rec: 05/08/21 14:44 DCW [id number]) Special Tests Shoulder Special Tests Passive ER Rotator Cuff Test Results Significant tightness at 55? Lift-Off Rotator Cuff Test Results Difficulty lifting Belly Press Test Results Negative PT-OP-M Strength Start: 05/08/21 12:39 Freq: Status: Active Protocol: Document 05/08/21 11:15 DCW (Rec: 05/08/21 14:44 DCW [id number]) Shoulder Strength Shoulder Manual Muscle Testing Left Flexion 4+ Good+ Abduction (C5) 4+ Good+ External Rotation 5 Normal Internal Rotation 5 Normal Right Flexion 3+ Fair+ Abduction (C5) 4 Good External Rotation 3+ Fair+ Internal Rotation 5 Normal PT-OP-Q Treatments Start: 05/08/21 12:39 Freq: Status: Active Protocol: Document 05/08/21 11:15 DCW (Rec: 05/08/21 12:44 DCW [id number]) Manual Therapy Treatment Soft Tissue Mobilization 1 Body Location R Lat, Teres Major, Lower Trap Mobilization Type Sustained Pressure,Trigger Point Release Intensity/Depth Deep Body Position Sidelying PT-OP-T Assessment and Plan Start: 05/08/21 12:39 Freq: Status: Active Protocol: Document 05/08/21 11:15 DCW (Rec: 05/08/21 15:05 DCW [id number]) Physical Therapy Assessment Rehab Potential Rehabilitation Potential Good Evaluation Complexity Number of Personal Factors/Comorbidities 3 or More Number of Body Systems Impaired 4 or More Clinical Presentation at Evaluation Unstable Impairments Impairments Activity Tolerance,Functional Mobility,Pain,Posture,Soft Tissue Mobility,Strength,Tone Other Concerns Barriers to Rehabilitation New onset seizure, Aneurysmal dilatation, thoracic compression fractures Goals Three Impairment MMT of right shoulder flexion and ER 3+/5 Retirement Goal (LTG) Pt to increase strength of right shoulder flexion and external rotation to at least 4/5 to improve ability to participate in pulling crab pots into his boat without difficulty. LTG Duration 06/19/21 Two Impairment Pt right scapula significantly depressed and rotated Retirement Goal (LTG) Pt to present with his right scapula measured within 2 cm from his left in regard to distance from spine LTG Duration 06/19/21 One Impairment Pt does not have an appropriate home exercise program Short Term Goal (STG) Pt to be independent and compliant with an appropriate HEP STG Duration 05/29/21 Assessment Summary Assessment Pt presents with a very unique history, reporting increased shoulder pain which began when he had a seizure when sleeping in an awkward position. Pt presents with significant tone in his right lat, lower trap, and parascapular muscles, which then depress the right scapula and rotate it counter- clockwise. Pt displays normal ROM, but has significant weakness in his right shoulder , especially flexion and ER, which both rate 3+/5. At this time, difficult to differentiate what symptoms are from this incident when he had a seizure, and which are just his normal shoulder dysfunction, which he reports is from a long career of physical jobs, but he is not worried about that part of it. Pt may benefit from skilled therapy focusing on significant STM to the right lat, lower trap, and parascapular muscles, as well as manual assessment of his cervical spine, which was not addressed today due to time constraints. Pt may benefit from advanced imaging of he does not progress with frequent skilled PT. Physical Therapy Plan Frequency and Duration Frequency of Treatment 1x/Week Duration of Treatment 6 weeks Plan of Care Start Date 05/08/21 Plan of Care End Date 06/19/21 Therapeutic Interventions Therapeutic Interventions Home Exercise Program,Joint Mobilizations,Manual Therapy, Neuromuscular Re-education, Patient/Caregiver Education, Self-Care/Home Management,Soft Tissue Mobilization, Therapeutic Activities, Therapeutic Exercises Modalities Cold Pack/Ice Massage,Electric Stimulation,Hot Packs, Ultrasound Next Visit Focus/Plan Next Note Type Treatment Note Next Visit Plan STM, cervical assessment
--- NOTE | 2021-05-08 15:07 | PT.OPPOC ---
Physical, Occupational & Speech Therapy At [facility] Current Diagnoses Other chronic pain (05/08/21) Pain in right shoulder (05/08/21) Wedge compression fracture of unspecified thoracic vertebra, initial encounter for closed fracture (05/08/21) Other injury of muscle(s) and tendon(s) of the rotator cuff of right shoulder, subsequent encounter (05/08/21) Visit Care Team Role Provider Type Serjio Fernandez MD Attending Provider Physician Primary Care Provider Referring Provider Specialty: Family Practice Address: [address] [place] [address] Email: [email or web address] Plan Of Care PT-OP-T Assessment and Plan Start: 05/08/21 12:39 Freq: Status: Active Protocol: Document 05/08/21 11:15 DCW (Rec: 05/08/21 15:05 DCW [id number]) Physical Therapy Assessment Rehab Potential Rehabilitation Potential Good Evaluation Complexity Number of Personal Factors/Comorbidities 3 or More Number of Body Systems Impaired 4 or More Clinical Presentation at Evaluation Unstable Impairments Impairments Activity Tolerance,Functional Mobility,Pain,Posture,Soft Tissue Mobility,Strength,Tone Other Concerns Barriers to Rehabilitation New onset seizure, Aneurysmal dilatation, thoracic compression fractures Goals Three Impairment MMT of right shoulder flexion and ER 3+/5 Plate Shear Operator Goal (LTG) Pt to increase strength of right shoulder flexion and external rotation to at least 4/5 to improve ability to participate in pulling crab pots into his boat without difficulty. LTG Duration 06/19/21 Two Impairment Pt right scapula significantly depressed and rotated Jail Goal (LTG) Pt to present with his right scapula measured within 2 cm from his left in regard to distance from spine LTG Duration 06/19/21 One Impairment Pt does not have an appropriate home exercise program Short Term Goal (STG) Pt to be independent and compliant with an appropriate HEP STG Duration 05/29/21 Assessment Summary Assessment Pt presents with a very unique history, reporting increased shoulder pain which began when he had a seizure when sleeping in an awkward position. Pt presents with significant tone in his right lat, lower trap, and parascapular muscles, which then depress the right scapula and rotate it counter- clockwise. Pt displays normal ROM, but has significant weakness in his right shoulder , especially flexion and ER, which both rate 3+/5. At this time, difficult to differentiate what symptoms are from this incident when he had a seizure, and which are just his normal shoulder dysfunction, which he reports is from a long career of physical jobs, but he is not worried about that part of it. Pt may benefit from skilled therapy focusing on significant STM to the right lat, lower trap, and parascapular muscles, as well as manual assessment of his cervical spine, which was not addressed today due to time constraints. Pt may benefit from advanced imaging of he does not progress with frequent skilled PT. Physical Therapy Plan Frequency and Duration Frequency of Treatment 1x/Week Duration of Treatment 6 weeks Plan of Care Start Date 05/08/21 Plan of Care End Date 06/19/21 Therapeutic Interventions Therapeutic Interventions Home Exercise Program,Joint Mobilizations,Manual Therapy, Neuromuscular Re-education, Patient/Caregiver Education, Self-Care/Home Management,Soft Tissue Mobilization, Therapeutic Activities, Therapeutic Exercises Modalities Cold Pack/Ice Massage,Electric Stimulation,Hot Packs, Ultrasound Next Visit Focus/Plan Next Note Type Treatment Note Next Visit Plan STM, cervical assessment Plan of Care Dates Plan of Care Start Date 05/08/21 Plan of Care End Date 06/19/21 Electronically Signed by: Gregory Valente, PT 05/08/21 4710 Please Sign and Return: I have reviewed this Plan of Care and certify that the skilled therapy services above are required to meet the patient?s needs. Physician Signature Date Printed Name and Credentials Clinical Instructor Signature Printed Name and Credentials
--- NOTE | 2021-05-30 14:27 | PT.OTN ---
Current Diagnoses Other chronic pain (05/30/21) Pain in right shoulder (05/30/21) Wedge compression fracture of unspecified thoracic vertebra, initial encounter for closed fracture (05/30/21) Other injury of muscle(s) and tendon(s) of the rotator cuff of right shoulder, subsequent encounter (05/30/21) Physical Therapy Treatment Note PT-OP-A Visit Information Start: 05/08/21 12:39 Freq: Status: Active Protocol: Document 05/30/21 13:45 DCW (Rec: 05/30/21 14:27 DCW [id number]) Out-Patient Physical Therapy Visit Information Visit Information Visit Type Treatment Note Visit Start Time 13:45 Visit Stop Time 14:30 Total Visit Minutes 45 Visit Number 2 Number of FINANCIAL UNDERWRITER Visits 0 Evaluation Information Evaluation Date 05/08/21 PT-OP-B Current Condition Start: 05/08/21 12:39 Freq: Status: Active Protocol: Document 05/08/21 11:15 DCW (Rec: 05/08/21 12:58 DCW [id number]) Current Condition History of Current Condition Onset Date 04/08/21 Current Complaints Right shoulder pain, tightness History of Current Condition Pt is a 55 year old male presenting with a one month history of very unusual right shoulder pain. Pt reports he fell asleep on a cot in his office on 04/08/21 with his right arm hanging out over the edge and the metal bar of the cot was along his shoulder. Sometime while he slept, he ended up having a seizure, and his next memory is waking up in the hospital 14 hours later . Admits that immediately upon waking up, he noted severe right shoulder pain. 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 Pt describes it as gradual pain building over a few days, all his muscles in his right shoulder, neck, and under his arm around the front of his torso get tighter and tighter, his usual tinnitus goes away, and then he'll turn his head, hear his neck pop, and suddenly everything goes right back to normal, muscles relax , and his tinnitus returns. He 'll feel better for a few days , until it all starts over again. 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 Prior Treatments and Tests Imaging when at ER following seizure uncovered multiple mild, chronic thoracic compression fractures Personal Factors Other Personal Factors That May Effect Newly diagnosed seizures, Therapy/Recovery thoracic compression fractures , Aneurysmal dilatation PT-OP-C Subjective Start: 05/08/21 12:39 Freq: Status: Active Protocol: Document 05/30/21 13:45 DCW (Rec: 05/30/21 14:27 DCW [id number]) OP-PT Subjective Patient Comments Patient Comments Even just that little bit we did that last time really helped, I was pretty much immediately able to lift my arm up and move it around. PT-OP-F Manual Assessment Start: 05/08/21 12:39 Freq: Status: Active Protocol: Document 05/08/21 11:15 DCW (Rec: 05/08/21 14:44 DCW [id number]) Manual Assessments Soft Tissue Assessment Soft Tissue Mobility Assessment Severe tightness through right lat, lower trap, teres major resulting in depression and counter clockwise rotation of right scapula PT-OP-J Posture/Palpation/Skin Start: 05/08/21 14:41 Freq: Status: Active Protocol: Document 05/08/21 11:15 DCW (Rec: 05/08/21 14:48 DCW [id number]) Posture Evaluation Position Sitting Evaluation View Posterior Scapula Posture (R) Rotated Down,(R) Depressed Comments Posture Comments Scapula positioning measured distance from spine: At inferior angle: right 19 cm , left 14 cm At spine of scapula: right 9 cm, left 8.1 cm Right spine of scapula depressed 4 cm vs left PT-OP-K Range of Motion Start: 05/08/21 12:39 Freq: Status: Active Protocol: Document 05/08/21 11:15 DCW (Rec: 05/08/21 14:44 DCW [id number]) Shoulder Goniometric Range of Motion Shoulder Right Active Shoulder ROM WFL Yes Comments Pain at end range PT-OP-L Special Tests Start: 05/08/21 12:39 Freq: Status: Active Protocol: Document 05/08/21 11:15 DCW (Rec: 05/08/21 14:44 DCW [id number]) Special Tests Shoulder Special Tests Passive ER Rotator Cuff Test Results Significant tightness at 55? Lift-Off Rotator Cuff Test Results Difficulty lifting Belly Press Test Results Negative PT-OP-M Strength Start: 05/08/21 12:39 Freq: Status: Active Protocol: Document 05/08/21 11:15 DCW (Rec: 05/08/21 14:44 DCW [id number]) Shoulder Strength Shoulder Manual Muscle Testing Left Flexion 4+ Good+ Abduction (C5) 4+ Good+ External Rotation 5 Normal Internal Rotation 5 Normal Right Flexion 3+ Fair+ Abduction (C5) 4 Good External Rotation 3+ Fair+ Internal Rotation 5 Normal PT-OP-Q Treatments Start: 05/08/21 12:39 Freq: Status: Active Protocol: Document 05/30/21 13:45 DCW (Rec: 05/30/21 14:27 DCW [id number]) Therapeutic Exercises Standing Exercises 2 Standing Exercise Name Shoulder Abduction Side bilateral Resistance Lv 3 Equipment Used T-band 1 Standing Exercise Name Shoulder Flexion Side bilateral Resistance Lv 3 Equipment Used T-band Manual Therapy Treatment Soft Tissue Mobilization 1 Body Location R Lat, Teres Major, Lower Trap Mobilization Type Sustained Pressure,Trigger Point Release Intensity/Depth Deep Body Position Sidelying Joint Mobilizations 1 Joint Scapulothoracic Mobs Direction Lateral Grade IV Body Position Sidelying PT-OP-T Assessment and Plan Start: 05/08/21 12:39 Freq: Status: Active Protocol: Document 05/30/21 13:45 DCW (Rec: 05/30/21 14:27 DCW [id number]) Physical Therapy Assessment Impairments Impairments Activity Tolerance,Functional Mobility,Pain,Posture,Soft Tissue Mobility,Strength,Tone Goals Three Impairment MMT of right shoulder flexion and ER 3+/5 Skilled Nursing Goal (LTG) Pt to increase strength of right shoulder flexion and external rotation to at least 4/5 to improve ability to participate in pulling crab pots into his boat without difficulty. LTG Duration 06/19/21 Two Impairment Pt right scapula significantly depressed and rotated Card Punching Machine Operator Goal (LTG) Pt to present with his right scapula measured within 2 cm from his left in regard to distance from spine LTG Duration 06/19/21 One Impairment Pt does not have an appropriate home exercise program Short Term Goal (STG) Pt to be independent and compliant with an appropriate HEP STG Duration 05/29/21 Assessment Summary Assessment Pt doing very well with HEP, working hard on self-STM using small ball. Pt already showing great progress with shoulder ROM and mobility. Physical Therapy Plan Frequency and Duration Frequency of Treatment 1x/Week Duration of Treatment 6 weeks Plan of Care Start Date 05/08/21 Plan of Care End Date 06/19/21 Therapeutic Interventions Therapeutic Interventions Home Exercise Program,Joint Mobilizations,Manual Therapy, Neuromuscular Re-education, Patient/Caregiver Education, Self-Care/Home Management,Soft Tissue Mobilization, Therapeutic Activities, Therapeutic Exercises Modalities Cold Pack/Ice Massage,Electric Stimulation,Hot Packs, Ultrasound Next Visit Focus/Plan Next Note Type Treatment Note Next Visit Plan STM, cervical assessment
--- NOTE | 2021-06-06 14:30 | PT.OTN ---
Current Diagnoses Other chronic pain (06/06/21) Pain in right shoulder (06/06/21) Wedge compression fracture of unspecified thoracic vertebra, initial encounter for closed fracture (06/06/21) Other injury of muscle(s) and tendon(s) of the rotator cuff of right shoulder, subsequent encounter (06/06/21) Physical Therapy Treatment Note PT-OP-A Visit Information Start: 05/08/21 12:39 Freq: Status: Active Protocol: Document 06/06/21 13:45 DCW (Rec: 06/06/21 14:30 DCW [id number]) Out-Patient Physical Therapy Visit Information Visit Information Visit Type Discharge Summary Visit Start Time 13:45 Visit Stop Time 14:30 Total Visit Minutes 45 Visit Number 3 Number of GOLF MANAGER Visits 0 Evaluation Information Evaluation Date 05/08/21 PT-OP-B Current Condition Start: 05/08/21 12:39 Freq: Status: Active Protocol: Document 05/08/21 11:15 DCW (Rec: 05/08/21 12:58 DCW [id number]) Current Condition History of Current Condition Onset Date 04/08/21 Current Complaints Right shoulder pain, tightness History of Current Condition Pt is a 55 year old male presenting with a one month history of very unusual right shoulder pain. Pt reports he fell asleep on a cot in his office on 04/08/21 with his right arm hanging out over the edge and the metal bar of the cot was along his shoulder. Sometime while he slept, he ended up having a seizure, and his next memory is waking up in the hospital 14 hours later . Admits that immediately upon waking up, he noted severe right shoulder pain. 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 Pt describes it as gradual pain building over a few days, all his muscles in his right shoulder, neck, and under his arm around the front of his torso get tighter and tighter, his usual tinnitus goes away, and then he'll turn his head, hear his neck pop, and suddenly everything goes right back to normal, muscles relax , and his tinnitus returns. He 'll feel better for a few days , until it all starts over again. 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 Prior Treatments and Tests Imaging when at ER following seizure uncovered multiple mild, chronic thoracic compression fractures Personal Factors Other Personal Factors That May Effect Newly diagnosed seizures, Therapy/Recovery thoracic compression fractures , Aneurysmal dilatation PT-OP-C Subjective Start: 05/08/21 12:39 Freq: Status: Active Protocol: Document 06/06/21 13:45 DCW (Rec: 06/06/21 14:30 DCW [id number]) OP-PT Subjective Patient Comments Patient Comments Pt has been feeling a lot better overall, feels his HEP and self mobs have really been helping. PT-OP-F Manual Assessment Start: 05/08/21 12:39 Freq: Status: Active Protocol: Document 05/08/21 11:15 DCW (Rec: 05/08/21 14:44 DCW [id number]) Manual Assessments Soft Tissue Assessment Soft Tissue Mobility Assessment Severe tightness through right lat, lower trap, teres major resulting in depression and counter clockwise rotation of right scapula PT-OP-J Posture/Palpation/Skin Start: 05/08/21 14:41 Freq: Status: Active Protocol: Document 05/08/21 11:15 DCW (Rec: 05/08/21 14:48 DCW [id number]) Posture Evaluation Position Sitting Evaluation View Posterior Scapula Posture (R) Rotated Down,(R) Depressed Comments Posture Comments Scapula positioning measured distance from spine: At inferior angle: right 19 cm , left 14 cm At spine of scapula: right 9 cm, left 8.1 cm Right spine of scapula depressed 4 cm vs left PT-OP-K Range of Motion Start: 05/08/21 12:39 Freq: Status: Active Protocol: Document 05/08/21 11:15 DCW (Rec: 05/08/21 14:44 DCW [id number]) Shoulder Goniometric Range of Motion Shoulder Right Active Shoulder ROM WFL Yes Comments Pain at end range PT-OP-L Special Tests Start: 05/08/21 12:39 Freq: Status: Active Protocol: Document 05/08/21 11:15 DCW (Rec: 05/08/21 14:44 DCW [id number]) Special Tests Shoulder Special Tests Passive ER Rotator Cuff Test Results Significant tightness at 55? Lift-Off Rotator Cuff Test Results Difficulty lifting Belly Press Test Results Negative PT-OP-M Strength Start: 05/08/21 12:39 Freq: Status: Active Protocol: Document 05/08/21 11:15 DCW (Rec: 05/08/21 14:44 DCW [id number]) Shoulder Strength Shoulder Manual Muscle Testing Left Flexion 4+ Good+ Abduction (C5) 4+ Good+ External Rotation 5 Normal Internal Rotation 5 Normal Right Flexion 3+ Fair+ Abduction (C5) 4 Good External Rotation 3+ Fair+ Internal Rotation 5 Normal PT-OP-Q Treatments Start: 05/08/21 12:39 Freq: Status: Active Protocol: Document 06/06/21 13:45 DCW (Rec: 06/06/21 14:30 DCW [id number]) Therapeutic Exercises Standing Exercises 3 Standing Exercise Name Pec stretch - corner Side bilateral 2 Standing Exercise Name Shoulder Abduction Side bilateral Resistance Lv 3 Equipment Used T-band 1 Standing Exercise Name Shoulder Flexion Side bilateral Resistance Lv 3 Equipment Used T-band Manual Therapy Treatment Soft Tissue Mobilization 1 Body Location R Lat, Teres Major, Lower Trap Mobilization Type Sustained Pressure,Trigger Point Release Intensity/Depth Deep Body Position Sidelying Joint Mobilizations 1 Joint Scapulothoracic Mobs Direction Lateral Grade IV Body Position Sidelying PT-OP-T Assessment and Plan Start: 05/08/21 12:39 Freq: Status: Active Protocol: Document 06/06/21 13:45 DCW (Rec: 06/06/21 14:30 DCW [id number]) Physical Therapy Assessment Impairments Impairments Activity Tolerance,Functional Mobility,Pain,Posture,Soft Tissue Mobility,Strength,Tone Goals Three Impairment MMT of right shoulder flexion and ER 3+/5 Assisted Goal (LTG) Pt to increase strength of right shoulder flexion and external rotation to at least 4/5 to improve ability to participate in pulling crab pots into his boat without difficulty. LTG Duration Met Two Impairment Pt right scapula significantly depressed and rotated Pouncer Goal (LTG) Pt to present with his right scapula measured within 2 cm from his left in regard to distance from spine LTG Duration Met One Impairment Pt does not have an appropriate home exercise program Short Term Goal (STG) Pt to be independent and compliant with an appropriate HEP STG Duration Met Progress Towards Goals Progress Towards Goals Goals Met Assessment Summary Assessment Pt has met all goals, has been incredibly compliant with HEP , and feels good going forward . Pt appropriate for discharge at this time. Physical Therapy Plan Frequency and Duration Frequency of Treatment 1x/Week Duration of Treatment 6 weeks Plan of Care Start Date 05/08/21 Plan of Care End Date 06/19/21 Therapeutic Interventions Therapeutic Interventions Home Exercise Program,Joint Mobilizations,Manual Therapy, Neuromuscular Re-education, Patient/Caregiver Education, Self-Care/Home Management,Soft Tissue Mobilization, Therapeutic Activities, Therapeutic Exercises Modalities Cold Pack/Ice Massage,Electric Stimulation,Hot Packs, Ultrasound Discharge Physical Therapy Discharge Reasons Goals Met Next Visit Focus/Plan Next Note Type Discharge Summary
== END 2021-06-09 07:50 | disposition home or self-care (01) ==
LOC: PHYS 13:45
PROVIDERS: PCP Family Medicine; Referring Provider Family Medicine; Visit Provider Family Medicine
DX: M25.511 Pain in right shoulder (principal); G89.29 Other chronic pain; S22.000A Wedge compression fracture of unspecified thoracic vertebra, initial encounter for closed fracture; S46.091D Other injury of muscle(s) and tendon(s) of the rotator cuff of right shoulder, subsequent encounter
CPT/HCPCS: 97110; 97140; 97162

== ENCOUNTER 2022-01-15 10:55 | Emergency (ER) | payer OTHER, MEDICAID, SELFPAY ==
[2022-01-15] VITALS (22 sets, daily range): BP systolic 112–142; BP diastolic 62–85; PULSE 59–87; RESP 12–18; TEMP 36.8; O2SAT 94–100
--- NOTE | 2022-01-15 11:05 | ED_ITS ---
HPI - General Adult <Jian Ramirez DO - Last Filed: 01/17/22 07:13> General Chief complaint: Seizure Stated complaint: Seizure,not taking meds. Time Seen by Provider: 01/15/22 10:58 Source: EMS Mode of arrival: EMS Limitations: altered mental status History of Present Illness HPI narrative: Patient is a 56-year-old male. Has a known history of seizures. Reportedly supposed to be taking Keppra but EMS states that they were told by the patient's that he does not take any medication because he does not like the way that it makes him feel. This reported that the patient had 3 seizures this morning. EMS reports they were told they were all short and resolved on their own. Uns ure if the patient regained consciousness in between the seizures. EMS did give 2 mg Valium EN route. Patient did have a bowel movement. Has a cut to his tongue. He is unable to provide any HPI given his mental status upon arrival. Related Data Home Medications Medication Instructions Recorded Confirmed omeprazole 20 mg capsule,delayed 20 mg PO PRN PRN #0 09/09/17 09/18/21 release levetiracetam 1,000 mg tablet 500 mg PO BID tab 09/18/21 09/18/21 (Keppra) Allergies Allergy/AdvReac Type Severity Reaction Status Date / Time No Known Drug Allergies Allergy Verified 04/29/21 16:03 Review of Systems <Jian Ramirez DO - Last Filed: 01/17/22 07:13> Review of Systems ROS Unobtainable: Unobtainable due to medical condition Patient History <Jian Ramirez DO - Last Filed: 01/17/22 07:13> Medical History Compression fracture of thoracic vertebra GERD (gastroesophageal reflux disease) Marijuana smoker Multiple lung nodules on CT Pain of right heel Tobacco use (08/21/16) Surgical History H/O hernia repair Status post appendectomy Family History Father No problems noted. Social History Smoking Status: Former smoker Smoking Status: Former smoker Substance Use Type: marijuana Exam <Jian Ramirez DO - Last Filed: 01/17/22 07:13> Initial Vital Signs Initial Vital Signs: Vital Signs Blood Pressure 127/73 01/15/22 11:03 Const General: comfortable HENMT Other HENMT:: Small bite to front of left tongue. No active bleeding. Eyes Pupils: PERRL Resp Effort & Inspection: normal respiratory effort Auscultation: clear to auscultation bilaterally Cardio Rate: regular rate Rhythm: regular rhythm GI Inspection: non-distended Palpation: soft Skin General: no rashes or lesions noted Neuro Other: Patient does not follow commands but does move all of his extremities spontaneously. He rolled from his back to his right side on his own. Extrem Other: No obvious deformities Psych Appearance: grossly normal <Gregorio Pang DO - Last Filed: 01/16/22 00:52> Initial Vital Signs Initial Vital Signs: Vital Signs Blood Pressure 127/73 01/15/22 11:03 Course <Jian Ramirez DO - Last Filed: 01/17/22 07:13> Orders Ordered: Discontinued Medications Acetaminophen (Acetaminophen 325 Mg Tablet) 975 mg PO NOW ONE Stop: 01/15/22 14:31 Last Admin: 01/15/22 15:02 Dose: 975 mg Documented by: RAMA Al Hydrox/Mg Hydrox/Simethicone 20 ml/ Lidocaine HCl 15 ml 0 ml PO NOW ONE Stop: 01/15/22 18:58 Last Admin: 01/15/22 19:03 Dose: 35 ml Documented by: RAMA Levetiracetam 500 mg/ Sodium (Chloride) 105 mls @ 420 mls/hr IV NOW ONE Stop: 01/15/22 11:00 Last Infusion: 01/15/22 11:37 Dose: 0 mls/hr Documented by: Admin: 01/15/22 11:15 Dose: 420 mls/hr Documented by: RAMA Ondansetron HCl (Ondansetron 4 Mg/2 Ml Inj) 4 mg IV NOW ONE Stop: 01/15/22 15:19 Last Admin: 01/15/22 15:24 Dose: 4 mg Documented by: RAMA Ondansetron HCl (Ondansetron 4 Mg/2 Ml Inj) 4 mg IV NOW ONE Stop: 01/15/22 19:09 Last Admin: 01/15/22 19:11 Dose: 4 mg Documented by: RAMA Pantoprazole Sodium (Pantoprazole 40 Mg Vial) 40 mg IV NOW ONE Stop: 01/15/22 19:16 Last Admin: 01/15/22 19:17 Dose: 40 mg Documented by: RAMA Vital Signs Vital signs: Vital Signs - 8 hr 01/15/22 17:00 01/15/22 17:30 01/15/22 18:00 Pulse Rate 61 61 63 Blood Pressure 128/76 135/71 126/78 Pulse Oximetry 94 99 96 01/15/22 18:30 01/15/22 19:00 01/15/22 19:01 Pulse Rate 71 60 63 Blood Pressure 118/72 140/78 Pulse Oximetry 97 99 100 01/15/22 19:30 Pulse Rate 59 L Blood Pressure 122/70 Pulse Oximetry 96 <Gregorio Pang DO - Last Filed: 01/16/22 00:52> Orders Ordered: Discontinued Medications Acetaminophen (Acetaminophen 325 Mg Tablet) 975 mg PO NOW ONE Stop: 01/15/22 14:31 Last Admin: 01/15/22 15:02 Dose: 975 mg Documented by: RAMA Al Hydrox/Mg Hydrox/Simethicone 20 ml/ Lidocaine HCl 15 ml 0 ml PO NOW ONE Stop: 01/15/22 18:58 Last Admin: 01/15/22 19:03 Dose: 35 ml Documented by: RAMA Levetiracetam 500 mg/ Sodium (Chloride) 105 mls @ 420 mls/hr IV NOW ONE Stop: 01/15/22 11:00 Last Infusion: 01/15/22 11:37 Dose: 0 mls/hr Documented by: Admin: 01/15/22 11:15 Dose: 420 mls/hr Documented by: RAMA Ondansetron HCl (Ondansetron 4 Mg/2 Ml Inj) 4 mg IV NOW ONE Stop: 01/15/22 15:19 Last Admin: 01/15/22 15:24 Dose: 4 mg Documented by: RAMA Ondansetron HCl (Ondansetron 4 Mg/2 Ml Inj) 4 mg IV NOW ONE Stop: 01/15/22 19:09 Last Admin: 01/15/22 19:11 Dose: 4 mg Documented by: RAMA Pantoprazole Sodium (Pantoprazole 40 Mg Vial) 40 mg IV NOW ONE Stop: 01/15/22 19:16 Last Admin: 01/15/22 19:17 Dose: 40 mg Documented by: RAMA Vital Signs Vital signs: Vital Signs - 8 hr 01/15/22 17:00 01/15/22 17:30 01/15/22 18:00 Pulse Rate 61 61 63 Blood Pressure 128/76 135/71 126/78 Pulse Oximetry 94 99 96 01/15/22 18:30 01/15/22 19:00 01/15/22 19:01 Pulse Rate 71 60 63 Blood Pressure 118/72 140/78 Pulse Oximetry 97 99 100 01/15/22 19:30 Pulse Rate 59 L Blood Pressure 122/70 Pulse Oximetry 96 Medical Decision Making <Jian Ramirez DO - Last Filed: 01/17/22 07:13> Medical Records Medical records reviewed: Yes I reviewed the patient's medical records. Lab Data Lab results reviewed: Yes I reviewed the patient's lab results. Result diagrams: 01/15/22 11:16 01/15/22 11:16 Labs: Lab Results 01/15/22 01/15/22 Range/Units 11:16 11:16 WBC 14.7 H (4.5-11.0) X10^3/uL RBC 5.22 (4.5-5.9) X10^6/uL Hgb 15.7 (13.5-17.5) g/dL Hct 46.2 (41-53) % MCV 88.6 (80-100) fL MCH 30.1 (26-34) PG MCHC 34.0 (30-36) % RDW 13.8 (11.6-14.8) % Plt Count 219 (150-400) X10^3/uL Neut % (Auto) 89.5 H (50-75) % Lymph % (Auto) 4.3 L (25-40) % [place] % (Auto) 6.1 (3-14) % Eos % (Auto) 0.0 L (2-4) % Baso % (Auto) 0.1 (0-2) % Neut # (Auto) 21491 H (2492-0940) /uL Lymph # (Auto) 600 L (7291-8829) /uL [place] # (Auto) 900 (0-900) /uL Eos # (Auto) 0 (0-450) /uL Baso # (Auto) 0 (0-100) /uL Sodium 141 (137-145) mmol/L Potassium 4.0 (3.4-5.1) mmol/L Chloride 113 H (98-107) mmol/L Carbon Dioxide 14 L (22-32) mmol/L BUN 13 (9-20) mg/dL Creatinine 1.01 (0.66-1.25) mg/dL Estimated GFR > 60 (>60) mL/min BUN/Creatinine Ratio 12.9 (6-22) Glucose 157 H (70-100) mg/dL Calcium 8.8 (8.4-10.2) mg/dL Ethyl Alcohol < 10 ( - 10) mg/dL Point of Care Testing Glucose POC 140 Point of care testing: Point of Care Testing Glucose POC 140 MDM Narrative Medical decision making narrative: Patient was went upon arrival. Most likely secondary to his seizures and also the Valium that he received prior to arrival. Patient has no signs of continued seizures. Patient is leukocytosis but I suspect this is related to the seizures. Low suspicion for infection. He was given Keppra. His seizure today most likely because he has not been taking his Keppra. He does have a laceration to his tongue that does not need repaired. No other signs of trauma. Patient did spend an extended period time here in the ER under observation. He was arousable but was unsteady on his feet. Was somewhat able to tolerate oral intake. His states that the last time this happened was a fairly extended recovery time after the seizure. Considered obtaining head CT but after discussion with his and the fact that this seems very similar to prior seizures we will hold on any radiologic studies for now. Care turned over to Dr. Pang you continue to evaluate until patient is able to stand and eventually be discharged home. <Gregorio Pang, DO - Last Filed: 01/16/22 00:52> Lab Data Labs: Lab Results 01/15/22 01/15/22 Range/Units 11:16 11:16 WBC 14.7 H (4.5-11.0) X10^3/uL RBC 5.22 (4.5-5.9) X10^6/uL Hgb 15.7 (13.5-17.5) g/dL Hct 46.2 (41-53) % MCV 88.6 (80-100) fL MCH 30.1 (26-34) PG MCHC 34.0 (30-36) % RDW 13.8 (11.6-14.8) % Plt Count 219 (150-400) X10^3/uL Neut % (Auto) 89.5 H (50-75) % Lymph % (Auto) 4.3 L (25-40) % [place] % (Auto) 6.1 (3-14) % Eos % (Auto) 0.0 L (2-4) % Baso % (Auto) 0.1 (0-2) % Neut # (Auto) 64697 H (9762-0969) /uL Lymph # (Auto) 600 L (6783-5377) /uL [place] # (Auto) 900 (0-900) /uL Eos # (Auto) 0 (0-450) /uL Baso # (Auto) 0 (0-100) /uL Sodium 141 (137-145) mmol/L Potassium 4.0 (3.4-5.1) mmol/L Chloride 113 H (98-107) mmol/L Carbon Dioxide 14 L (22-32) mmol/L BUN 13 (9-20) mg/dL Creatinine 1.01 (0.66-1.25) mg/dL Estimated GFR > 60 (>60) mL/min BUN/Creatinine Ratio 12.9 (6-22) Glucose 157 H (70-100) mg/dL Calcium 8.8 (8.4-10.2) mg/dL Ethyl Alcohol < 10 ( - 10) mg/dL Point of Care Testing Glucose POC 140 Point of care testing: Point of Care Testing Glucose POC [address] [facility] Narrative Medical decision making narrative: Patient was went upon arrival. Most likely secondary to his seizures and also the Valium that he received prior to arrival. Patient has no signs of continued seizures. Patient is leukocytosis but I suspect this is related to the seizures. Low suspicion for infection. He was given Keppra. His seizure today most likely because he has not been taking his Keppra. He does have a laceration to his tongue that does not need repaired. No other signs of trauma. Patient did spend an extended period time here in the ER under observation. He was arousable but was unsteady on his feet. Was somewhat able to tolerate oral intake. His states that the last time this happened was a fairly extended recovery time after the seizure. Considered obtaining head CT but after di scussion with his and the fact that this seems very similar to prior seizures we will hold on any radiologic studies for now. Care turned over to Dr. Pang you continue to evaluate until patient is able to stand and eventually be discharged home. 1800 (Bird). Patient received in sign-out from Dr. Ramirez. I reviewed the clinical course to this point and performed an independent history and physical exam. He is feeling significant improvement, is alert and oriented, at the bedside. He is able to ambulate without difficulty and assures me he will start taking his medications as directed. He has been given return precautions and questions have been answered to his apparent satisfaction Discharge Plan Departure Patient Disposition: Home Clinical Impression: Seizure Instructions: DI for Seizure Disorder -- Adult Activity Restrictions/Additional Instructions: I recommend that you start back on your Keppra. It is important that you are on this medicine to avoid having seizures. Unfortunately because of the seizure today you are not to drive for the next 6 months or until you are cleared by either your primary doctor or Neurology. Contact your primary doctor for follow-up. Also contact your neurologist for follow-up. Return to the emergency department for any new or worsening symptoms. Prescriptions: No Action omeprazole 20 MG capsule,delayed release(DR/EC) 20 mg PO PRN PRNQty: 0 0RF levetiracetam [Keppra] 1,000 mg tablet 500 mg PO BID 0RF Rx Instructions: increase by 500mg daily every two weeks up to 1.5gm bid Referrals: Serjio Fernandez MD [Primary Care Provider] -
[2022-01-15] MEDS: levETIRAcetam 500 MG in SODIUM CHLORIDE 0.9% 100 ML 420 ML IV (11:15)
[2022-01-15 11:22] LABS: Add Manual Diff / Slide Review NO; Basophils Absolute Auto 0 /uL (0-100); Basophils Percent Auto 0.1 % (0-2); Eosinophils Absolute Auto 0 /uL (0-450); Hematocrit 46.2 % (41-53); Hemoglobin 15.7 g/dL (13.5-17.5); Lymphocytes Absolute Auto 600 /uL (1100-4500); Lymphocytes Percent Auto 4.3 % (25-40); Mean Corpuscular Hemoglobin 30.1 PG (26-34); Mean Corpuscular Volume 88.6 fL (80-100); Monocytes Absolute Auto 900 /uL (0-900); Monocytes Percent Auto 6.1 % (3-14); Neutrophils Absolute Auto 13100 /uL (1500-7000); Neutrophils Percent Auto 89.5 % (50-75); Platelet Count 219 X10^3/uL (150-400); Red Blood Cell Count 5.22 X10^6/uL (4.5-5.9); Red Cell Distribution Width 13.8 % (11.6-14.8); White Blood Cell Count 14.7 X10^3/uL (4.5-11.0)
--- NOTE | 2022-01-15 11:25 | PC.NURSE ---
Pt alert and oriented to self. Does not recall seizure events, unsure where he is and the year. Pt arousable to voice, denies pain, dried blood noted around lips.
--- NOTE | 2022-01-15 11:34 | PC.NURSE ---
at bedside, states she witnessed x2 seizures lasting approximately 1 minute each. States pt was not taking Keppra r/t thinking he did not need to and past seizures were r/t increased stress. Updated on plan of care.
[2022-01-15 11:40] LABS: BUN Creatinine Ratio 12.9 (6-22); Blood Urea Nitrogen 13 mg/dL (9-20); Calcium 8.8 mg/dL (8.4-10.2); Carbon Dioxide 14 mmol/L (22-32); Chloride 113 mmol/L (98-107); Estimated Glomerular Filt Rate > 60 mL/min (>60); Ethanol (ETOH) < 10 mg/dL; Glucose 157 mg/dL (70-100); HEMOLYSIS < 15 (0-50); Sodium 141 mmol/L (137-145)
--- NOTE | 2022-01-15 12:38 | PC.NURSE ---
Pt aaox4/4, able to stand and move to commode independently. Impulsive with movements, staff at standby.
[2022-01-15] MEDS: ACETAMINOPHEN 325 MG TABLET 975 MG PO (15:02)
[2022-01-15] MEDS: ONDANSETRON 4 MG/2 ML INJ IV ×2 (15:24→19:11)
--- NOTE | 2022-01-15 15:43 | PC.NURSE ---
Pt easily arousable, aaox4/4, able to move and adjust self. Reports he is tired and often falls asleep in middle of conversation, impulsive with movements and requests. Per this is usual for him post seizure, Dr. Ramirez spoke to pt and family, continuing to monitor.
[2022-01-15] MEDS: MAG HYDROX/ALUMINUM/SIMETH SUS 20 ML, LIDOCAINE VISCOUS 2% 15 ML PO (19:03)
[2022-01-15] MEDS: PANTOPRAZOLE 40 MG VIAL IV (19:17)
--- NOTE | 2022-01-15 19:24 | PC.NURSE ---
Pt reported sour stomach, medication administered and pt vomitted. Dr Pang aware and IV medications administered. Pt inquiring about discharge, educated pt about walking, pt assisted in plan to reassess in approximately 15 minutes and attempt walking trial.
--- NOTE | 2022-01-15 19:51 | PC.NURSE ---
Pt continues to be drowsy, ambulated steady down hallway and back.
== END 2022-01-15 20:22 | disposition home or self-care (01) ==
PROVIDERS: Emergency Medicine; Emergency Provider Emergency Medicine; PCP Family Medicine
DX: R56.9 Unspecified convulsions (principal); Z79.899 Other long term (current) drug therapy
CPT/HCPCS: 36415; 80048; 80320; 82962; 85025; 96365; 96375; 96376; 99284; C9113; J1953; J2405

== ENCOUNTER → 2022-03-30 11:37 | Outpatient (CLI) | payer OTHER, MEDICAID, SELFPAY | PROVIDERS: PCP Family Medicine; Referring Provider Family Medicine; Visit Provider Family Medicine | DX: S22.000S Wedge compression fracture of unspecified thoracic vertebra, sequela (principal) | CPT/HCPCS: 77080 ==

== ENCOUNTER → 2022-08-07 09:59 | Outpatient (CLI) | payer OTHER, MEDICAID, SELFPAY ==
[2022-08-07 10:55] LABS: Add Manual Diff / Slide Review NO; Basophils Absolute Auto 0 /uL (0-100); Basophils Percent Auto 0.2 % (0-2); Eosinophils Absolute Auto 100 /uL (0-450); Eosinophils Percent Auto 1.3 % (2-4); Hematocrit 46.2 % (41-53); Hemoglobin 15.6 g/dL (13.5-17.5); Lymphocytes Absolute Auto 2100 /uL (1100-4500); Lymphocytes Percent Auto 37.7 % (25-40); Mean Corpuscular HGB Conc 33.8 % (30-36); Mean Corpuscular Volume 88.7 fL (80-100); Monocytes Absolute Auto 400 /uL (0-900); Monocytes Percent Auto 7.9 % (3-14); Neutrophils Absolute Auto 2900 /uL (1500-7000); Neutrophils Percent Auto 52.9 % (50-75); Platelet Count 216 X10^3/uL (150-400); Red Blood Cell Count 5.21 X10^6/uL (4.5-5.9); Red Cell Distribution Width 13.3 % (11.6-14.8); White Blood Cell Count 5.6 X10^3/uL (4.5-11.0)
[2022-08-07 11:00] LABS: Hemoglobin A1C% w Est Avg Glu 5.9 % (4.0-6.0)
[2022-08-07 11:23] LABS: Alanine Aminotransferase 23 IU/L (<50); Albumin 4.5 g/dL (3.5-5.0); Albumin Globulin Ratio 1.5 (1.0-2.8); Alkaline Phosphatase 68 U/L (38-126); Aspartate Aminotransferase 21 IU/L (17-59); BUN Creatinine Ratio 14.6 (6-22); Bilirubin Total 0.6 mg/dL (0.2-1.3); Blood Urea Nitrogen 13 mg/dL (9-20); Calcium 9.6 mg/dL (8.4-10.2); Carbon Dioxide 27 mmol/L (22-32); Chloride 101 mmol/L (98-107); Cholesterol 206 mg/dL (140-199); Estimated Glomerular Filt Rate > 60 mL/min (>60); Glucose 99 mg/dL (70-100); HDL Cholesterol 43 mg/dL (40-60); HEMOLYSIS < 15 (0-50); LDL Cholesterol Calculated 146 mg/dL (<100); Potassium 4.6 mmol/L (3.4-5.1); Sodium 138 mmol/L (137-145); Total Protein 7.5 g/dL (6.3-8.2); Triglycerides 83 mg/dL (35-150)
[2022-08-07 11:53] LABS: TSH w/ Reflex to FT4 0.75 uIU/mL (0.47-4.68)
[2022-08-11 09:48] LABS: Lamotrigine Lamictal <1.0 ug/mL (2.0-20.0)
== END ==
PROVIDERS: PCP Family Medicine; Referring Provider Family Medicine; Visit Provider Family Medicine
DX: R06.09 Other forms of dyspnea (principal); R53.83 Other fatigue; R56.9 Unspecified convulsions
CPT/HCPCS: 36415; 80053; 80061; 80175; 83036; 84443; 85025

== ENCOUNTER → 2022-09-14 09:00 | Outpatient (CLI) | payer OTHER, MEDICAID, SELFPAY ==
[2022-09-17 13:32] LABS: Lamotrigine Lamictal 2.2 ug/mL (2.0-20.0)
== END ==
PROVIDERS: PCP Family Medicine; Referring Provider Family Medicine; Visit Provider Family Medicine
DX: G40.909 Epilepsy, unspecified, not intractable, without status epilepticus (principal); I71.21 Aneurysm of the ascending aorta, without rupture
CPT/HCPCS: 36415; 80175

== ENCOUNTER → 2022-09-18 16:42 | Outpatient (CLI) | payer OTHER, MEDICAID, SELFPAY ==
--- NOTE | 2022-09-18 16:43 | DI.MRI.S_ITS ---
PROCEDURE: MR HEAD/BRAIN WO CON INDICATIONS: vision changes, seizure history TECHNIQUE: Noncontrast axial T1 spin echo, axial T2 fast spin echo, sagittal and axial FLAIR, axial gradient echo, axial diffusion and ADC, coronal thin-slice T2 FSE through the brain. Optional contrast, followed by axial and coronal and sagittal 3D VIBE or T1 spin echo with fat saturation sequences through the brain. COMPARISON: [facility], CT, CT HEAD WITHOUT CONTRAST, 08/22/2021, 12:16. FINDINGS: Image quality: Excellent. CSF spaces: Ventricles are normal in size and shape. Basal cisterns are patent. No extra-axial fluid collections. Brain: No intracranial bleeds or mass effects. No abnormal intracranial enhancement. Felix-white matter interface appears intact. Diffusion weighted images demonstrate no acute ischemic insults. Brainstem appear normal. Normal intravascular flow voids are present. The hippocampal regions appear normal and symmetric in morphology. Several scattered foci of T2 weighted hyperintensity can be seen within the cerebral hemispheres, primarily within the periventricular and deep white matter and more prominent on the left than on the right. No definite involvement of the corpus callosum or brainstem can be seen. Skull and face: Calvarial marrow signal is normal. Orbits appear normal. Sinuses: Sinuses and mastoids are clear. IMPRESSION: No cause of seizures identified. The hippocampi demonstrate a normal, symmetric appearance. Scattered foci of T2 weighted hyperintensity can be seen within the white matter. These are nonspecific, yet are statistically most likely related to early chronic small vessel ischemic change in a patient of this age. Dictated by: Adrian Hernandez M.D. on 09/18/2022 at 17:00 Approved by: Adrian Hernandez M.D. on 09/18/2022 at 17:02
== END ==
PROVIDERS: PCP Family Medicine; Referring Provider Family Medicine; Visit Provider Family Medicine
DX: G40.909 Epilepsy, unspecified, not intractable, without status epilepticus (principal); H53.9 Unspecified visual disturbance
CPT/HCPCS: 70551

== ENCOUNTER 2022-10-18 08:48 | Emergency (ER) | payer OTHER, MEDICAID, SELFPAY ==
[2022-10-18] VITALS (18 sets, daily range): BP systolic 125–156; BP diastolic 62–100; PULSE 62–76; RESP 15–44; TEMP 36; O2SAT 94–100
[2022-10-18] MEDS: SODIUM CHLORIDE 0.9% 1,000 ML 1000 ML IV ×2 (09:09→12:44)
[2022-10-18] MEDS: ONDANSETRON 4 MG/2 ML INJ IV (09:10)
[2022-10-18] MEDS: KETOROLAC 30 MG/ML VIAL 15 MG IV (09:12)
[2022-10-18 09:14] LABS: Add Manual Diff / Slide Review NO; Basophils Absolute Auto 0 /uL (0-100); Basophils Percent Auto 0.2 % (0-2); Eosinophils Absolute Auto 100 /uL (0-450); Eosinophils Percent Auto 0.5 % (2-4); Hematocrit 51.6 % (41-53); Hemoglobin 16.8 g/dL (13.5-17.5); Lymphocytes Absolute Auto 3500 /uL (1100-4500); Lymphocytes Percent Auto 23.5 % (25-40); Mean Corpuscular HGB Conc 32.5 % (30-36); Mean Corpuscular Hemoglobin 30.2 PG (26-34); Monocytes Absolute Auto 700 /uL (0-900); Monocytes Percent Auto 4.7 % (3-14); Neutrophils Absolute Auto 10400 /uL (1500-7000); Neutrophils Percent Auto 71.1 % (50-75); Platelet Count 260 X10^3/uL (150-400); Red Blood Cell Count 5.55 X10^6/uL (4.5-5.9); Red Cell Distribution Width 13.6 % (11.6-14.8); White Blood Cell Count 14.7 X10^3/uL (4.5-11.0)
[2022-10-18 09:23] LABS: Alanine Aminotransferase 47 IU/L (<50); Albumin Globulin Ratio 1.4 (1.0-2.8); Alkaline Phosphatase 96 U/L (38-126); Aspartate Aminotransferase 34 IU/L (17-59); BUN Creatinine Ratio 10.1 (6-22); Bilirubin Total 0.7 mg/dL (0.2-1.3); Blood Urea Nitrogen 11 mg/dL (9-20); Calcium 9.2 mg/dL (8.4-10.2); Carbon Dioxide 11 mmol/L (22-32); Chloride 105 mmol/L (98-107); Estimated Glomerular Filt Rate > 60 mL/min (>60); Ethanol (ETOH) < 10 mg/dL; Globulin 3.6 g/dL (1.7-4.1); Glucose 149 mg/dL (70-100); HEMOLYSIS 17 (0-50); Sodium 142 mmol/L (137-145); Total Protein 8.6 g/dL (6.3-8.2)
--- NOTE | 2022-10-18 09:34 | PC.NURSE ---
is at pt bedside. she states pt missed dose of seizure medications on accident. she states pt has history of biting his tongue everytime he has seizure and he often has severe nausea afterwards. informed her we gave anti nausea medications and pain meds. bed plugged in to wall, education provided on how to use beds, more warm blankets given to patient.
[2022-10-18 09:44] LABS: Creatine Kinase 184 U/L (55-170); Lipase 38 U/L (23-300)
[2022-10-18 09:57] LABS: Troponin I 0.018 ng/mL (0.01-0.034)
[2022-10-18 09:59] LABS: CKMB % Relative Index 0.9 % (1.5-5.0); Creatine Kinase MB 1.72 ng/mL (<2.37)
[2022-10-18] MEDS: LORazepam 2 MG/ML INJ 1 MG IV (10:05)
--- NOTE | 2022-10-18 11:17 | ED_ITS ---
HPI - Seizure General Chief Complaint: Seizure Stated Complaint: seizure x 2 today Time Seen by Provider: 10/18/22 08:56 Source: patient and EMS Mode of arrival: EMS History of Present Illness HPI Narrative: Patient is a 57-year-old male history of seizure disorder and anxiety presenting today with 2 seizures. reports that he was stressed out yesterday having some family stress he was tired in the night missed his night dose of la motrigine this morning she woke up noted that he was breathing weird with probable seizure. Lasted for about a minute and a half. Sounds as though he completely recovered went to take a shower came back to bed and then had another minute and a half seizure of tonic-clonic shaking and bit his tongue. At that point EMS was called. Postictal. Now complaining of headache remains a little postictal able to answer some questions. is at bedside. It appears that his last seizure was December 2021. reports that he had head CT as outpatient a couple months ago there was no tumor identified. He is followed by Neurology but she is not sure who the doctor is currently a. She does not report any infection no alcohol use. Related Data Home Medications Medication Instructions Recorded Confirmed omeprazole 20 mg capsule,delayed 20 mg PO PRN PRN ##0 09/09/17 09/10/22 release lamotrigine 100 mg tablet 100 mg PO BID 09/10/22 09/10/22 Previous Rx's Medication Instructions Recorded clonazepam 0.5 mg tablet 0.5 mg PO BID PRN anxiety #30 tabs 10/05/22 Allergies Allergy/AdvReac Type Severity Reaction Status Date / Time levetiracetam [From [facility]] Allergy Unknown Verified 10/18/22 08:49 Patient History Medical History Ascending aortic aneurysm Compression fracture of thoracic vertebra Epilepsy GERD (gastroesophageal reflux disease) Hallucinogenic mushrooms use disorder, mild Marijuana smoker Multiple lung nodules on CT Pain of right heel Tobacco use (08/21/16) Surgical History H/O hernia repair Status post appendectomy Family History Father No problems noted. Social History Smoking Status: Former smoker Smoking Status: Former smoker Substance Use Type: marijuana Exam Initial Vital Signs Initial Vital Signs: Vital Signs Pulse Rate 69 10/18/22 08:58 Respiratory Rate 18 10/18/22 08:58 Pulse Oximetry 98 10/18/22 08:58 GENERAL: Alert 57-year-old male moaning HEENT: Head atraumatic,EOMI, pupils reactive, face symmetric, moist mucous membranes CARDIOVASCULAR: Regular rate and rhythm without murmurs, rubs or gallops. RESPIRATORY: Breath sounds equal bilaterally, no wheezes rales or rhonchi. ABDOMEN: Soft, nontender. Normoactive bowel sounds all 4 quadrants. No guarding or rebound. EXTREMITIES: Normal range of motion, no clubbing or edema. Neurovascularly intact NEUROLOGICAL: Moaning moving in all extremities postictal SKIN: Warm, dry, no laceration, no petechiae, no rashes or lesions. Course Orders Ordered: ED Orders 10/18/22 11:30 Troponin I Stat 10/18/22 12:33 CT angio chest abdomen pelvis Stat 10/18/22 13:25 Trop I [Troponin I] Stat Discontinued Medications Acetaminophen (Acetaminophen 325 Mg Tablet) 650 mg PO NOW ONE Stop: 10/18/22 12:31 Last Admin: 10/18/22 15:11 Dose: Not Given Documented By: YANIRA Sodium Chloride (Normal Saline 0.9%) 1,000 mls @ 1,000 mls/hr IV BOLUS ONE Stop: 10/18/22 10:03 Last Infusion: 10/18/22 10:15 Dose: 0 mls/hr Documented By: Admin: 10/18/22 09:09 Dose: 1,000 mls/hr Documented By: MARIA T Sodium Chloride (Normal Saline 0.9%) 1,000 mls @ 1,000 mls/hr IV BOLUS ONE Stop: 10/18/22 10:07 Last Admin: 10/18/22 09:11 Dose: Not Given Documented By: MARIA T Sodium Chloride (Normal Saline 0.9%) 1,000 mls @ 1,000 mls/hr IV BOLUS ONE Stop: 10/18/22 13:32 Last Infusion: 10/18/22 14:06 Dose: 0 mls/hr Documented By: Admin: 10/18/22 12:44 Dose: 1,000 mls/hr Documented By: YANIRA Ketorolac Tromethamine (Ketorolac 30 Mg/Ml Vial) 15 mg IV NOW ONE Stop: 10/18/22 09:05 Last Admin: 10/18/22 09:12 Dose: 15 mg Documented By: MARIA T Lorazepam (Lorazepam 2 Mg/Ml Inj) 1 mg IV NOW ONE Stop: 10/18/22 09:36 Last Admin: 10/18/22 10:05 Dose: 1 mg Documented By: YANIRA Morphine Sulfate (Morphine 2 Mg/Ml Inj) 2 mg IV NOW ONE Stop: 10/18/22 12:35 Last Admin: 10/18/22 12:43 Dose: 2 mg Documented By: YANIRA Ondansetron HCl (Ondansetron 4 Mg/2 Ml Inj) 4 mg IV NOW ONE Stop: 10/18/22 09:09 Last Admin: 10/18/22 09:10 Dose: 4 mg Documented By: MARIA T Ondansetron HCl (Ondansetron 4 Mg/2 Ml Inj) 4 mg IV NOW ONE Stop: 10/18/22 09:09 Last Admin: 10/18/22 09:11 Dose: Not Given Documented By: MARIA T Vital Signs Vital signs: Vital Signs - 8 hr 10/18/22 12:00 10/18/22 12:00 10/18/22 12:30 Pulse Rate 68 Respiratory Rate Blood Pressure 143/80 H 128/62 Pulse Oximetry 94 10/18/22 12:30 10/18/22 13:00 10/18/22 13:02 Pulse Rate 63 76 Respiratory Rate 44 H Blood Pressure 156/83 H Pulse Oximetry 95 95 10/18/22 13:02 10/18/22 13:30 10/18/22 14:00 Pulse Rate 67 76 74 Respiratory Rate 19 16 16 Blood Pressure Pulse Oximetry 96 95 10/18/22 14:30 10/18/22 15:00 10/18/22 15:06 Pulse Rate 71 68 67 Respiratory Rate 34 H 15 16 Blood Pressure Pulse Oximetry 97 95 96 10/18/22 15:06 Pulse Rate Respiratory Rate Blood Pressure 146/80 H Pulse Oximetry MDM - Seizure Lab Data 10/18/22 08:54 10/18/22 08:54 Labs: Lab Results 01/29/23 01/29/23 01/29/23 Range/Units 08:54 08:54 09:31 WBC 14.7 H (4.5-11.0) X10^3/uL RBC 5.55 (4.5-5.9) X10^6/uL Hgb 16.8 (13.5-17.5) g/dL Hct 51.6 (41-53) % MCV 93.0 (80-100) fL MCH 30.2 (26-34) PG MCHC 32.5 (30-36) % RDW 13.6 (11.6-14.8) % Plt Count 260 (150-400) X10^3/uL Neut % (Auto) 71.1 (50-75) % Lymph % (Auto) 23.5 L (25-40) % [place] % (Auto) 4.7 (3-14) % Eos % (Auto) 0.5 L (2-4) % Baso % (Auto) 0.2 (0-2) % Neut # (Auto) 15124 H (9426-0505) /uL Lymph # (Auto) 3500 (3631-6200) /uL [place] # (Auto) 700 (0-900) /uL Eos # (Auto) 100 (0-450) /uL Baso # (Auto) 0 (0-100) /uL Sodium 142 (137-145) mmol/L Potassium 4.0 (3.4-5.1) mmol/L Chloride 105 (98-107) mmol/L Carbon Dioxide 11 L (22-32) mmol/L BUN 11 (9-20) mg/dL Creatinine 1.09 (0.66-1.25) mg/dL Estimated GFR > 60 (>60) mL/min BUN/Creatinine Ratio 10.1 (6-22) Glucose 149 H (70-100) mg/dL Calcium 9.2 (8.4-10.2) mg/dL Total Bilirubin 0.7 (0.2-1.3) mg/dL AST 34 (17-59) IU/L ALT 47 (<50) IU/L Alkaline Phosphatase 96 (38-126) U/L Total Creatine Kinase 184 H (55-170) U/L CK-MB (CK-2) 1.72 (<2.37) ng/mL CK-MB (CK-2) Rel Index 0.9 L (1.5-5.0) % Troponin I 0.018 (0.01-0.034) ng/mL Total Protein 8.6 H (6.3-8.2) g/dL Albumin 5.0 (3.5-5.0) g/dL Globulin 3.6 (1.7-4.1) g/dL Albumin/Globulin Ratio 1.4 (1.0-2.8) Lipase 38 (23-300) U/L Ethyl Alcohol < 10 ( - 10) mg/dL 10/18/22 10/18/22 Range/Units 11:30 13:25 WBC (4.5-11.0) X10^3/uL RBC (4.5-5.9) X10^6/uL Hgb (13.5-17.5) g/dL Hct (41-53) % MCV (80-100) fL MCH (26-34) PG MCHC (30-36) % RDW (11.6-14.8) % Plt Count (150-400) X10^3/uL Neut % (Auto) (50-75) % Lymph % (Auto) (25-40) % [place] % (Auto) (3-14) % Eos % (Auto) (2-4) % Baso % (Auto) (0-2) % Neut # (Auto) (1439-3387) /uL Lymph # (Auto) (0650-7233) /uL [place] # (Auto) (0-900) /uL Eos # (Auto) (0-450) /uL Baso # (Auto) (0-100) /uL Sodium (137-145) mmol/L Potassium (3.4-5.1) mmol/L Chloride (98-107) mmol/L Carbon Dioxide (22-32) mmol/L BUN (9-20) mg/dL Creatinine (0.66-1.25) mg/dL Estimated GFR (>60) mL/min BUN/Creatinine Ratio (6-22) Glucose (70-100) mg/dL Calcium (8.4-10.2) mg/dL Total Bilirubin (0.2-1.3) mg/dL AST (17-59) IU/L ALT (<50) IU/L Alkaline Phosphatase (38-126) U/L Total Creatine Kinase (55-170) U/L CK-MB (CK-2) (<2.37) ng/mL CK-MB (CK-2) Rel Index (1.5-5.0) % Troponin I 0.042 H 0.055 H (0.01-0.034) ng/mL Total Protein (6.3-8.2) g/dL Albumin (3.5-5.0) g/dL Globulin (1.7-4.1) g/dL Albumin/Globulin Ratio (1.0-2.8) Lipase (23-300) U/L Ethyl Alcohol ( - 10) mg/dL Imaging Data CT scan - chest: Radiologist's Impression: Signed Patient: Héctor Paiz MR#: [id number] : 1965 Acct:[id number] Age/Sex: 57 / M Date of Service: 10/18/22 Loc: ED Accession Number: [id number] ?? Procedure: CT angio chest abdomen pelvis Ordering Provider: Hellen Martínez D.O. PROCEDURE:? CT ANGIO CHEST ABDOMEN PELVIS ? INDICATIONS:? elevated trop known thoracic aneurysm ? TECHNIQUE:? Precontrast 5 mm thick sections acquired from the lung apices to the iliac crests.? After the administration of intravenous contrast, 2.5 mm thick sections again acquired from the lung apices to the iliac crests.? Maximum intensity projection (MIP) oblique sagittal and coronal reformats were then acquired.? For radiation dose reduction, the following was used:? automated exposure control.? ? COMPARISON:? [facility] [place], CT, CT ANGIO CHEST ABDOMEN PELVIS, 04/09/2021, 7:1 8. ? FINDINGS:? Image quality:? Excellent.? ? AORTA:? The ascending thoracic aorta is again noted to be mildly aneurysmal, measuring 4.4 cm transversely on coronal images.? The distal aortic arch is also aneurysmal, measuring 0.6 cm.? The descending thoracic aorta measured transversely at the level of the right main pulmonary artery is also mildly aneurysmal, measuring 3.6 cm. ? No periaortic inflammatory changes are seen.? No findings dissection are seen. ? The abdominal aorta demonstrates normal caliber.? Atherosclerotic change can be seen throughout.? The right common iliac artery is ectatic at 2 cm. ? ? CHEST:? Lungs and pleura:? Mild dependent atelectasis can be seen at the lung bases, right worse than left.? No pleural effusions or pneumothorax.? Central and peripheral airways are patent and normal in caliber.? ? Mediastinum:? Heart size is normal.? No pericardial effusion.? There is [id number] coronary artery calcification.? No mediastinal or hilar adenopathy by size crite andrea.? Central pulmonary arteries are normal in size.? Esophagus is normal in caliber.? No hiatal hernias.? ? Bones and chest wall:? No axillary adenopathy by size criteria.? Thyroid gland demonstrates no significant abnormality.? No suspicious bony lesions.? No vertebral body compression fractures.? ? ? ABDOMEN:? Vasculature:? Celiac trunk and mesenteric arteries are patent.? Renal arteries are also patent.? ? Solid organs:? Liver is normal in size and enhancement.? Gallbladder wall is not thickened.? Biliary system is non dilated.? Pancreas enhances normally.? Spleen is normal in size and enhancement.? No adrenal nodules.? Both kidneys are normal in size and enhancement, without hydronephrosis.? ? Peritoneum and bowel:? No free fluid or air.? Bowel loops are normal in caliber and wall thickness.? ? Nodes and vessels:? No retroperitoneal or mesenteric adenopathy by size criteria.? Inferior vena cava is normal in morphology.? Atherosclerotic calcification is noted.? ? Miscellaneous:? No ventral hernias.? ? ? PELVIS:? Genitourinary:? Bladder wall thickness is normal.? ? Miscellaneous:? No inguinal hernias or adenopathy.? No ventral hernias.? ? Bones:? No suspicious bony lesions.? Mild, chronic anterior wedge deformities can be seen within the thoracolumbar junction. Incidental note is made of a limbus vertebral body involving the anterior superior portion of the L4 vertebral body.? Moderate central canal narrowing is seen at L4-L5.? Focal L5-S1 degenerative change is seen.? Milder degenerative changes are seen elsewhere.? IMPRESSION:? No acute abnormality is seen. ? There is again seen mild thoracic aortic aneurysm, with the ascending thoracic aorta measuring 4.4 cm transversely. ? Additional findings:? Dependent atelectasis [id number] coronary artery calcification Midthoracic anterior wedge deformities, chronic L4 limbus vertebral body Focal lower lumbar spine degenerative change ? ? ? Dictated by: Adrian Hernandez M.D. on 10/18/2022 at 12:12 ? ? Approved by: Adrian Hernandez M.D. on 10/18/2022 at 12:23 ? ECG Data Interpretation: EKG 1. Sinus rhythm rate 57 IA interval 174 QRS 100 QTC 4 O2 peaked T-waves in V3 V4 V5 no ST depressions T-wave inversion noted in lead [address] elevation in V2, previous EKG in 2020 does show peaked T-wave in V3 today V4 and V5 local little bit worse than they did ST segment in V2 looks similar. EKG 2. Repeat EKG sinus rhythm T-waves look improved persistent possible ST elevation in V2 with out worsening EKG 3. Sinus rhythm no ST depression really looks like early repolarization no significant changes MDM Narrative Medical decision making narrative: Patient is a 57-year-old male history of seizures presenting today with seizure to seizures possibly from stress induced yesterday along with did missing 2 doses of lamotrigine although the davis do it. No infection is found. He denies any symptoms. Initial EKG possibly concerning with peaked T-waves initial troponin was negative. Repeat EKG did not show any changes repeat troponin however was elevated 0.042 and 3rd troponin 0.05. Patient has absolutely no chest pain. CT angio was done for his thoracic aneurysm which is known. It appears stable and is 4.4 cm. At this time I think indeterminate troponin is likely secondary to seizure activity. I do not think is clinically relevant. He has no EKG changes and is overall completely asymptomatic. Patient was given 1 dose of Ativan for his postictal.. Becoming more awake alert and appropriate. Feeling ready able to go home. Recommend that he follow-up with his PCP and neurologist. Discharge Plan Departure Patient Disposition: Home Clinical Impression: Seizure Instructions: DI for Seizure Disorder -- Adult Activity Restrictions/Additional Instructions: DON't DRIVE UNTIL EVALUATION WITH NEUROLOGY *You have been diagnosed with breakthrough seizure *What to do: At this time he likely had a breakthrough seizure unclear exactly what the reason is. Your heart troponin was minimally elevated at 0.05 this is not positive possibly from her seizure. However if you should have any significant chest pain shortness of breath or discomfort please return to the emergency department. *Continue to take medications as directed *Follow up with your primary care provider in 2-3 days or call [phone] *Return to ER if you should have chest pain palpitations shortness of breath dizziness lightheadedness recurrent seizure [or] any new, worsening or concerning symptoms Prescriptions: No Action omeprazole 20 MG capsule,delayed release(DR/EC) 20 mg PO PRN PRNQty: 0 clonazepam 0.5 mg tablet 0.5 mg PO BID PRN (Reason: anxiety) Qty: 30 0RF lamotrigine 100 mg tablet 100 mg PO BID Referrals: Serjio Fernandez MD [Primary Care Provider] - Stand Alone Forms: Patient Portal/API
[2022-10-18 12:05] LABS: Troponin I 0.042 ng/mL (0.01-0.034)
--- NOTE | 2022-10-18 12:33 | DI.CT.S_ITS ---
PROCEDURE: CT ANGIO CHEST ABDOMEN PELVIS INDICATIONS: elevated trop known thoracic aneurysm TECHNIQUE: Precontrast 5 mm thick sections acquired from the lung apices to the iliac crests. After the administration of intravenous contrast, 2.5 mm thick sections again acquired from the lung apices to the iliac crests. Maximum intensity projection (MIP) oblique sagittal and coronal reformats were then acquired. For radiation dose reduction, the following was used: automated exposure control. COMPARISON: [facility], CT, CT ANGIO CHEST ABDOMEN PELVIS, 04/09/2021, 7:18. FINDINGS: Image quality: Excellent. AORTA: The ascending thoracic aorta is again noted to be mildly aneurysmal, measuring 4.4 cm transversely on coronal images. The distal aortic arch is also aneurysmal, measuring 0.6 cm. The descending thoracic aorta measured transversely at the level of the right main pulmonary artery is also mildly aneurysmal, measuring 3.6 cm. No periaortic inflammatory changes are seen. No findings dissection are seen. The abdominal aorta demonstrates normal caliber. Atherosclerotic change can be seen throughout. The right common iliac artery is ectatic at 2 cm. CHEST: Lungs and pleura: Mild dependent atelectasis can be seen at the lung bases, right worse than left. No pleural effusions or pneumothorax. Central and peripheral airways are patent and normal in caliber. Mediastinum: Heart size is normal. No pericardial effusion. There is [id number] coronary artery calcification. No mediastinal or hilar adenopathy by size criteria. Central pulmonary arteries are normal in size. Esophagus is normal in caliber. No hiatal hernias. Bones and chest wall: No axillary adenopathy by size criteria. Thyroid gland demonstrates no significant abnormality. No suspicious bony lesions. No vertebral body compression fractures. ABDOMEN: Vasculature: Celiac trunk and mesenteric arteries are patent. Renal arteries are also patent. Solid organs: Liver is normal in size and enhancement. Gallbladder wall is not thickened. Biliary system is non dilated. Pancreas enhances normally. Spleen is normal in size and enhancement. No adrenal nodules. Both kidneys are normal in size and enhancement, without hydronephrosis. Peritoneum and bowel: No free fluid or air. Bowel loops are normal in caliber and wall thickness. Nodes and vessels: No retroperitoneal or mesenteric adenopathy by size criteria. Inferior vena cava is normal in morphology. Atherosclerotic calcification is noted. Miscellaneous: No ventral hernias. PELVIS: Genitourinary: Bladder wall thickness is normal. Miscellaneous: No inguinal hernias or adenopathy. No ventral hernias. Bones: No suspicious bony lesions. Mild, chronic anterior wedge deformities can be seen within the thoracolumbar junction. Incidental note is made of a limbus vertebral body involving the anterior superior portion of the L4 vertebral body. Moderate central canal narrowing is seen at L4-L5. Focal L5-S1 degenerative change is seen. Milder degenerative changes are seen elsewhere. IMPRESSION: No acute abnormality is seen. There is again seen mild thoracic aortic aneurysm, with the ascending thoracic aorta measuring 4.4 cm transversely. Additional findings: Dependent atelectasis [id number] coronary artery calcification Midthoracic anterior wedge deformities, chronic L4 limbus vertebral body Focal lower lumbar spine degenerative change Dictated by: Adrian Hernandez M.D. on 10/18/2022 at 12:12 Approved by: Adrian Hernandez M.D. on 10/18/2022 at 12:23
[2022-10-18] MEDS: MORPHINE 2 MG/ML INJ IV (12:43)
--- NOTE | 2022-10-18 12:54 | PC.NURSE ---
pt did urinate, states his dumped it down the sink. educated patient and that a urine sample is needed and to use call light next time pt urinates.
[2022-10-18 14:01] LABS: Troponin I 0.055 ng/mL (0.01-0.034)
== END 2022-10-18 15:37 | disposition home or self-care (01) ==
PROVIDERS: Emergency Provider Emergency Medicine; PCP Family Medicine
DX: G40.909 Epilepsy, unspecified, not intractable, without status epilepticus (principal)
CPT/HCPCS: 36415; 71275; 74174; 80053; 80320; 82550; 82553; 83690; 84484; 85025; 93005; 96361; 96374; 96375; 99284; J1885; J2060; J2270; J2405; Q9967

== ENCOUNTER 2022-12-24 13:18 | Emergency (ER) | payer OTHER, MEDICAID, SELFPAY ==
[2022-12-24] VITALS (19 sets, daily range): BP systolic 97–149; BP diastolic 65–87; PULSE 62–84; RESP 12–32; TEMP 36.5; O2SAT 95–100; BMI 28.7
--- NOTE | 2022-12-24 13:26 | ED.SEIZURE ---
HPI - Seizure <Asuncion Baker DO - Last Filed: 12/25/22 09:38> General Chief Complaint: Seizure Stated Complaint: Seizures Time Seen by Provider: 12/24/22 13:20 Source: patient, EMS, RN notes reviewed and old records reviewed Mode of arrival: EMS Limitations: altered mental status History of Present Illness HPI Narrative: This is a 57-year-old male with history of seizure disorder and anxiety presenting with seizure activity today. EMS states activity was witnessed patient fell and struck his head on the edge of a counter top does have a cut over his eye as well as some bleeding from his mouth. Patient does appear to be postictal but he knows his name he called ears 2021, he states he does have a seizure disorder he states he is on his Lamictal he states he is taking it regularly. He states some point they did stop 1 of his anti seizure medications in the past. He does not recall exactly when. Patient does not recall any recent exacerbating factors. He notes that he has a cut on his tongue. He does not recall who he was with when this occurred or that there was anything prior to the events that caused his symptoms. Allergies reported to [facility]. Patient notes he is . is not at bedside. Related Data Home Medications Medication Instructions Recorded Confirmed omeprazole 20 mg capsule,delayed 20 mg PO PRN PRN ##0 09/09/17 10/22/22 release lamotrigine 100 mg tablet 100 mg PO BID 09/10/22 10/22/22 Previous Rx's Medication Instructions Recorded clonazepam 0.5 mg tablet 0.5 mg PO BID PRN anxiety #30 tabs 12/04/22 escitalopram oxalate 10 mg tablet 10 mg PO DAILY #60 tabs 12/04/22 (Lexapro) lamotrigine 25 mg tablet See Rx Instructions .Route 12/24/22 .COMPLEX 14 days #30 tabs Allergies Allergy/AdvReac Type Severity Reaction Status Date / Time levetiracetam [From [facility]] Allergy Unknown Verified 12/24/22 13:26 Review of Systems <Asuncion Baker DO - Last Filed: 12/25/22 09:38> Review of Systems ROS Unobtainable: All systems reviewed & are unremarkable except as noted in HPI and below Patient History <Asuncion Baker DO - Last Filed: 12/25/22 09:38> Medical History Ascending aortic aneurysm Compression fracture of thoracic vertebra Epilepsy GERD (gastroesophageal reflux disease) Hallucinogenic mushrooms use disorder, mild Marijuana smoker Multiple lung nodules on CT Pain of right heel Tobacco use (08/21/16) Surgical History H/O hernia repair Status post appendectomy Family History Father No problems noted. Social History Smoking Status: Former smoker Smoking Status: Former smoker Substance Use Type: marijuana Exam <Asuncion Baker DO - Last Filed: 12/25/22 09:38> Narrative Exam Narrative: GEN: well nourished, well appearing male, alert and oriented x 2, patient appears to be in mild distress. HEENT: Patient has a 1/2 cm laceration over the right brow slightly gapped, pupils are equal round reactive to light, extraocular movements are intact, nares are clear, TMs are clear with no fluid, there is no conjunctival pallor. Throat is clear without any exudates, erythema, tonsillar enlargement or uvular deviation, no facial droop. Patient does have a lack on his inner upper lip with a small amount of blood. Does not appear to have any dental injury. HEART: Regular rate and rhythm without murmur, clicks, rubs. Pulses are equal in upper and lower extremities LUNGS:Lungs clear to auscultation, no wheezes, rales, crackles, chest moves symmetrically ABD:bowel sounds normal, soft, non-tender, no guarding, rebound, rigidity, no masses noted, no hepatosplenomegaly :No CVA tenderness MSCL: Non-tender, no muscle atrophy, muscles strength 5/5 upper and lower extremities, full range of motion, normal gait NEURO:CN 2-12 intact, sensation normal SKIN: No rash, erythema or other skin changes. Initial Vital Signs Initial Vital Signs: Vital Signs Pulse Rate 84 12/24/22 13:21 Blood Pressure 149/87 H 12/24/22 13:21 Pulse Oximetry 97 12/24/22 13:21 <ROSCOE Kraft Last Filed: 12/24/22 15:11> Initial Vital Signs Initial Vital Signs: Vital Signs Pulse Rate 84 12/24/22 13:21 Blood Pressure 149/87 H 12/24/22 13:21 Pulse Oximetry 97 12/24/22 13:21 <ROSCOE Kraft Last Filed: 12/24/22 15:11> Laceration Repair Laceration 1: Time of procedure: 15:10 Site: face (R eyebrow) Size (cm): 2 Description: linear Depth: simple, single layer Local Anesthetic: lidocaine 1% Amount of anesthesia used (mL): 4 Pre-repair: irrigated extensively and cleansed with chlorhexadine Skin layer closed with: nylon Skin layer suture size: 5-0 Number of sutures: 4 Technique: simple, interrupted Course <Asuncion Baker DO - Last Filed: 12/25/22 09:38> Orders Ordered: Discontinued Medications Lactated Ringer's (Lactated Ringers) 1,000 mls @ 1,000 mls/hr IV BOLUS ONE Stop: 12/24/22 15:29 Last Infusion: 12/24/22 16:00 Dose: 0 mls/hr Documented By: Admin: 12/24/22 14:35 Dose: 1,000 mls/hr Documented By: VALERIE Lidocaine HCl (Lidocaine 1% 20 Ml) 5 ml INJ INTRA-OP ONE Stop: 12/24/22 14:45 Last Admin: 12/24/22 14:50 Dose: Not Given Documented By: ALEXIS Lidocaine HCl (Lidocaine 1% (Pf) 5 Ml) 5 ml INJ NOW ONE Stop: 12/24/22 14:51 Last Admin: 12/24/22 14:53 Dose: 5 ml Documented By: ALEXIS Lorazepam (Lorazepam 2 Mg/Ml Inj) 0.5 mg IV Q6HR PRN PRN Reason: Anxiety Last Admin: 12/24/22 13:40 Dose: 0.5 mg Documented By: VALERIE Ondansetron HCl (Ondansetron 4 Mg/2 Ml Inj) 4 mg IV NOW ONE Stop: 12/24/22 14:30 Last Admin: 12/24/22 14:34 Dose: 4 mg Documented By: VALERIE Vital Signs Vital signs: Vital Signs - 8 hr 12/24/22 13:22 12/24/22 13:21 12/24/22 13:21 Temperature 97.7 F Pulse Rate 84 84 Respiratory Rate 18 Blood Pressure 149/87 H 149/87 H Pulse Oximetry 95 97 Oxygen Delivery Method Room Air 12/24/22 13:30 12/24/22 13:30 12/24/22 13:32 Temperature Pulse Rate 75 74 Respiratory Rate 19 20 Blood Pressure 132/79 Pulse Oximetry 97 98 Oxygen Delivery Method 12/24/22 13:32 12/24/22 13:52 12/24/22 13:52 Temperature Pulse Rate 71 Respiratory Rate 17 Blood Pressure 128/87 113/71 Pulse Oximetry 99 Oxygen Delivery Method 12/24/22 14:00 12/24/22 14:00 12/24/22 14:11 Temperature Pulse Rate 68 Respiratory Rate 27 H Blood Pressure 114/67 97/65 Pulse Oximetry 98 Oxygen Delivery Method 12/24/22 14:11 12/24/22 14:20 12/24/22 14:20 Temperature Pulse Rate 68 70 Respiratory Rate 23 20 Blood Pressure 105/66 Pulse Oximetry 97 97 Oxygen Delivery Method 12/24/22 14:30 12/24/22 14:31 12/24/22 14:31 Temperature Pulse Rate 77 82 Respiratory Rate 32 H 27 H Blood Pressure 141/66 H Pulse Oximetry 96 96 Oxygen Delivery Method 12/24/22 14:40 12/24/22 14:40 12/24/22 14:50 Temperature Pulse Rate 62 62 Respiratory Rate 23 20 Blood Pressure 114/74 Pulse Oximetry 100 100 Oxygen Delivery Method 12/24/22 14:50 12/24/22 15:00 12/24/22 15:00 Temperature Pulse Rate 63 Respiratory Rate 17 Blood Pressure 111/73 112/74 Pulse Oximetry 95 Oxygen Delivery Method 12/24/22 15:11 12/24/22 15:11 12/24/22 15:20 Temperature Pulse Rate 66 64 Respiratory Rate 13 12 Blood Pressure 123/69 Pulse Oximetry 96 97 Oxygen Delivery Method 12/24/22 15:20 12/24/22 15:30 12/24/22 15:30 Temperature Pulse Rate 64 Respiratory Rate 14 Blood Pressure 113/74 113/73 Pulse Oximetry 96 Oxygen Delivery Method 12/24/22 15:40 12/24/22 15:40 12/24/22 15:50 Temperature Pulse Rate 63 Respiratory Rate 14 Blood Pressure 113/69 111/69 Pulse Oximetry 98 Oxygen Delivery Method 12/24/22 15:50 12/24/22 16:00 12/24/22 16:00 Temperature Pulse Rate 66 67 Respiratory Rate 16 18 Blood Pressure 112/69 Pulse Oximetry 95 97 Oxygen Delivery Method <Sumeet Quiles PA-C - Last Filed: 12/24/22 15:11> Orders Ordered: Discontinued Medications Lactated Ringer's (Lactated Ringers) 1,000 mls @ 1,000 mls/hr IV BOLUS ONE Stop: 12/24/22 15:29 Last Infusion: 12/24/22 16:00 Dose: 0 mls/hr Documented By: Admin: 12/24/22 14:35 Dose: 1,000 mls/hr Documented By: VALERIE Lidocaine HCl (Lidocaine 1% 20 Ml) 5 ml INJ INTRA-OP ONE Stop: 12/24/22 14:45 Last Admin: 12/24/22 14:50 Dose: Not Given Documented By: ALEXIS Lidocaine HCl (Lidocaine 1% (Pf) 5 Ml) 5 ml INJ NOW ONE Stop: 12/24/22 14:51 Last Admin: 12/24/22 14:53 Dose: 5 ml Documented By: ALEXIS Lorazepam (Lorazepam 2 Mg/Ml Inj) 0.5 mg IV Q6HR PRN PRN Reason: Anxiety Last Admin: 12/24/22 13:40 Dose: 0.5 mg Documented By: VALERIE Ondansetron HCl (Ondansetron 4 Mg/2 Ml Inj) 4 mg IV NOW ONE Stop: 12/24/22 14:30 Last Admin: 12/24/22 14:34 Dose: 4 mg Documented By: VALERIE Vital Signs Vital signs: Vital Signs - 8 hr 12/24/22 13:22 12/24/22 13:21 12/24/22 13:21 Temperature 97.7 F Pulse Rate 84 84 Respiratory Rate 18 Blood Pressure 149/87 H 149/87 H Pulse Oximetry 95 97 Oxygen Delivery Method Room Air 12/24/22 13:30 12/24/22 13:30 12/24/22 13:32 Temperature Pulse Rate 75 74 Respiratory Rate 19 20 Blood Pressure 132/79 Pulse Oximetry 97 98 Oxygen Delivery Method 12/24/22 13:32 12/24/22 13:52 12/24/22 13:52 Temperature Pulse Rate 71 Respiratory Rate 17 Blood Pressure 128/87 113/71 Pulse Oximetry 99 Oxygen Delivery Method 12/24/22 14:00 12/24/22 14:00 12/24/22 14:11 Temperature Pulse Rate 68 Respiratory Rate 27 H Blood Pressure 114/67 97/65 Pulse Oximetry 98 Oxygen Delivery Method 12/24/22 14:11 12/24/22 14:20 12/24/22 14:20 Temperature Pulse Rate 68 70 Respiratory Rate 23 20 Blood Pressure 105/66 Pulse Oximetry 97 97 Oxygen Delivery Method 12/24/22 14:30 12/24/22 14:31 12/24/22 14:31 Temperature Pulse Rate 77 82 Respiratory Rate 32 H 27 H Blood Pressure 141/66 H Pulse Oximetry 96 96 Oxygen Delivery Method 12/24/22 14:40 12/24/22 14:40 12/24/22 14:50 Temperature Pulse Rate 62 62 Respiratory Rate 23 20 Blood Pressure 114/74 Pulse Oximetry 100 100 Oxygen Delivery Method 12/24/22 14:50 12/24/22 15:00 12/24/22 15:00 Temperature Pulse Rate 63 Respiratory Rate 17 Blood Pressure 111/73 112/74 Pulse Oximetry 95 Oxygen Delivery Method 12/24/22 15:11 12/24/22 15:11 12/24/22 15:20 Temperature Pulse Rate 66 64 Respiratory Rate 13 12 Blood Pressure 123/69 Pulse Oximetry 96 97 Oxygen Delivery Method 12/24/22 15:20 12/24/22 15:30 12/24/22 15:30 Temperature Pulse Rate 64 Respiratory Rate 14 Blood Pressure 113/74 113/73 Pulse Oximetry 96 Oxygen Delivery Method 12/24/22 15:40 12/24/22 15:40 12/24/22 15:50 Temperature Pulse Rate 63 Respiratory Rate 14 Blood Pressure 113/69 111/69 Pulse Oximetry 98 Oxygen Delivery Method 12/24/22 15:50 12/24/22 16:00 12/24/22 16:00 Temperature Pulse Rate 66 67 Respiratory Rate 16 18 Blood Pressure 112/69 Pulse Oximetry 95 97 Oxygen Delivery Method MDM - Seizure <Asuncion Baker DO - Last Filed: 12/25/22 09:38> Lab Data 12/24/22 13:20 12/24/22 13:20 Labs: Lab Results 04/06/23 04/06/23 04/06/23 Range/Units 13:20 13:20 14:30 WBC 15.0 H (4.5-11.0) X10^3/uL RBC 5.27 (4.5-5.9) X10^6/uL Hgb 15.9 (13.5-17.5) g/dL Hct 49.7 (41-53) % MCV 94.3 (80-100) fL MCH 30.2 (26-34) PG MCHC 32.1 (30-36) % RDW 14.0 (11.6-14.8) % Plt Count 264 (150-400) X10^3/uL Neut % (Auto) 45.8 L (50-75) % Lymph % (Auto) 46.3 H (25-40) % Snyder % (Auto) 6.8 (3-14) % Eos % (Auto) 0.8 L (2-4) % Baso % (Auto) 0.3 (0-2) % Neut # (Auto) 6900 (7745-1465) /uL Lymph # (Auto) 6900 H (2320-6530) /uL Snyder # (Auto) 1000 H (0-900) /uL Eos # (Auto) 100 (0-450) /uL Baso # (Auto) 0 (0-100) /uL Sodium 142 (137-145) mmol/L Potassium 3.5 (3.4-5.1) mmol/L Chloride 105 (98-107) mmol/L Carbon Dioxide < 5 L* (22-32) mmol/L BUN 15 (9-20) mg/dL Creatinine 1.12 (0.66-1.25) mg/dL Estimated GFR > 60 (>60) mL/min BUN/Creatinine Ratio 13.4 (6-22) Glucose 205 H (70-100) mg/dL Calcium 9.0 (8.4-10.2) mg/dL Total Bilirubin 0.5 (0.2-1.3) mg/dL AST 33 (17-59) IU/L ALT 48 (<50) IU/L Alkaline Phosphatase 85 (38-126) U/L Total Protein 8.4 H (6.3-8.2) g/dL Albumin 4.9 (3.5-5.0) g/dL Globulin 3.5 (1.7-4.1) g/dL Albumin/Globulin Ratio 1.4 (1.0-2.8) Lipase 61 (23-300) U/L Urine Color Urine Appearance Urine pH (4.5-8.0) Ur Specific [place] (1.000-1.035) Urine Protein (Negative) Urine Glucose (UA) (Negative) g/dL Urine Ketones (NEGATIVE) Urine Occult Blood (Negative) Urine Nitrate (Negative) Urine Bilirubin (NEGATIVE) Urine Urobilinogen (0.2) E.U./dL Ur Leukocyte Esterase (NEGATIVE) Urine RBC (0-5/HPF) Urine WBC (0-5/HPF) Urine Bacteria (None) Hyaline Casts (None) Ur Culture Indicated? U Opiates 300ng/mL cut Negative (Negative) Ur Oxycodone Screen Negative (Negative) Urine Methadone Screen Negative (Negative) Ur Barbiturates Screen Negative (Negative) U Tricyclic Antidepress Negative (Negative) Ur Phencyclidine Scrn Negative (Negative) Ur Amphetamines Screen Negative (Negative) U Methamphetamines Scrn Negative (Negative) Ur MDMA Scrn (Ecstasy) Negative (Negative) U Benzodiazepines Scrn Negative (Negative) Urine Cocaine Screen Negative (Negative) U Marijuana (THC) Screen Positive H (Negative) Ethyl Alcohol < 10 ( - 10) mg/dL SARS-CoV-2 (PCR) (Negative) 12/24/22 12/24/22 Range/Units 14:30 14:42 WBC (4.5-11.0) X10^3/uL RBC (4.5-5.9) X10^6/uL Hgb (13.5-17.5) g/dL Hct (41-53) % MCV (80-100) fL MCH (26-34) PG MCHC (30-36) % RDW (11.6-14.8) % Plt Count (150-400) X10^3/uL Neut % (Auto) (50-75) % Lymph % (Auto) (25-40) % Snyder % (Auto) (3-14) % Eos % (Auto) (2-4) % Baso % (Auto) (0-2) % Neut # (Auto) (9048-2695) /uL Lymph # (Auto) (8028-8071) /uL Snyder # (Auto) (0-900) /uL Eos # (Auto) (0-450) /uL Baso # (Auto) (0-100) /uL Sodium (137-145) mmol/L Potassium (3.4-5.1) mmol/L Chloride (98-107) mmol/L Carbon Dioxide (22-32) mmol/L BUN (9-20) mg/dL Creatinine (0.66-1.25) mg/dL Estimated GFR (>60) mL/min BUN/Creatinine Ratio (6-22) Glucose (70-100) mg/dL Calcium (8.4-10.2) mg/dL Total Bilirubin (0.2-1.3) mg/dL AST (17-59) IU/L ALT (<50) IU/L Alkaline Phosphatase (38-126) U/L Total Protein (6.3-8.2) g/dL Albumin (3.5-5.0) g/dL Globulin (1.7-4.1) g/dL Albumin/Globulin Ratio (1.0-2.8) Lipase (23-300) U/L Urine Color Yellow Urine Appearance Clear Urine pH 6.0 (4.5-8.0) Ur Specific [place] >=1.030 H (1.000-1.035) Urine Protein 1+ H (Negative) Urine Glucose (UA) Negative (Negative) g/dL Urine Ketones Negative (NEGATIVE) Urine Occult Blood 1+ H (Negative) Urine Nitrate Negative (Negative) Urine Bilirubin Negative (NEGATIVE) Urine Urobilinogen 0.2 (0.2) E.U./dL Ur Leukocyte Esterase Negative (NEGATIVE) Urine RBC 1-5/hpf (0-5/HPF) Urine WBC 10-30/hpf H (0-5/HPF) Urine Bacteria None seen (None) Hyaline Casts 5-10/lpf (None) Ur Culture Indicated? Specimen cultured U Opiates 300ng/mL cut (Negative) Ur Oxycodone Screen (Negative) Urine Methadone Screen (Negative) Ur Barbiturates Screen (Negative) U Tricyclic Antidepress (Negative) Ur Phencyclidine Scrn (Negative) Ur Amphetamines Screen (Negative) U Methamphetamines Scrn (Negative) Ur MDMA Scrn (Ecstasy) (Negative) U Benzodiazepines Scrn (Negative) Urine Cocaine Screen (Negative) U Marijuana (THC) Screen (Negative) Ethyl Alcohol ( - 10) mg/dL SARS-CoV-2 (PCR) Negative (Negative) Imaging Data Chest x-ray: Radiologist's Impression: Héctor Paiz?(Bill)??57??M??1965 ? Allergy/Adv: levetiracetam (More??) Close Head CT (Signed) RichAlli - 12/24/22 Chest/Abdomen/Pelvis CTA (Signed) Adrian Hernandez - 10/18/22 Brain MRI (Signed) MaryAdrian wilson - 09/18/22 Bone Densitometry 03/30/22 DEXA Result 03/30/22 Shoulder X-Ray (Signed) Mat Lanza - 04/29/[address] (Signed) Jenna Coleman - 04/09/21 Chest/Abdomen/Pelvis CTA (Signed) RichlAli - 04/09/21 Chest X-Ray (Signed) Alli Villanueva - 04/09/21 Abdomen X-Ray (Signed) Alli Villanueva - 04/09/21 Foot X-Ray (Signed) Ian Rothman - 11/18/20 [place] [address] CT Scan Report Signed Patient: Héctor Paiz MR#: [id number] : 1965 Acct:[id number] Age/Sex: 57 / M Date of Service: 12/24/22 Loc: ED Accession Number: [id number] ?? Procedure: CT head/brain wo con Ordering Provider: Asuncion Baker D.O. PROCEDURE:? CT HEAD/BRAIN WO CON ? INDICATIONS:? seizure, lac to head ? TECHNIQUE:? Noncontrast 4.5 mm thick angled axial sections acquired from the foramen magnum to the vertex, with coronal and sagittal reformats.? For radiation dose reduction, the following was used:? automated exposure control, adjustment of mA and/or kV according to patient size.? ? COMPARISON:? [facility], CT, CT HEAD/BRAIN WO CON, 04/09/2021, 8:52. ? FINDINGS:? Image quality:? Excellent.? ? CSF spaces:? Basal cisterns are patent.? No extra-axial fluid collections.? Ventricles are normal in size and shape.? ? Brain:? No midline shift.? No intracranial masses or hemorrhage.? Felix-white matter interface is normal.? ? Skull and face:? Calvarium and visualized facial bones are intact, without suspicious lesions.? ? Sinuses:? Visualized sinuses and mastoids are clear.? ? IMPRESSION:? No evidence acute intracranial abnormality. ? ? Dictated by: Alli Villanueva M.D. on 12/24/2022 at 13:50 ? ? Approved by: Alli Villanueva M.D. on 12/24/2022 at 13:51?? MDM Narrative Medical decision making narrative: This is a 57-year-old male with witnessed seizure-like activity that was tonic-clonic in nature. Patient is accompanied by his who arrived afterwards. She witnessed the event. She does note that he is had some or type symptoms last several days to earlier today and several earlier this week but did not have any visualized seizure activity except for today. Patient's last change in his medications was in August he was started on 100 mg of lamotrigine twice daily at that time had not had any seizure activity since then. Patient and state they are not sure why the seizure started it has been going on for several years. Has seen Neurology in [facility]. He has not appointment for February 26. Workup including head CT, chest x-ray and lab work shows CO2 being low likely secondary to seizure activity, patient has leukocytosis glucose was 205, LFTs and workup shows some protein and small amount of blood in urine. Toxicology is positive for THC. COVID is negative. Patient's symptoms have improved he would a very typical kind of postictal state. He appears to be appropriate at baseline at this time. No additional seizure-like activity. I spoke with his neurology team, Dr. [place] from [facility] who recommends increasing his Lamictal continuing at 100 mg in the morning and increasing to 150 mg in the evening. He notes that if patient has persistent seizure activity with this dosage would require a 2nd medication. Patient had a laceration to the right brow which was repaired. Discussed return precautions, seizure precautions no driving. Patient states he understands all of this and family at bedside does as well. <Sumeet Quiles PA-C - Last Filed: 12/24/22 15:11> Lab Data Labs: Lab Results 12/24/22 12/24/22 12/24/22 Range/Units 13:20 13:20 14:30 WBC 15.0 H (4.5-11.0) X10^3/uL RBC 5.27 (4.5-5.9) X10^6/uL Hgb 15.9 (13.5-17.5) g/dL Hct 49.7 (41-53) % MCV 94.3 (80-100) fL MCH 30.2 (26-34) PG MCHC 32.1 (30-36) % RDW 14.0 (11.6-14.8) % Plt Count 264 (150-400) X10^3/uL Neut % (Auto) 45.8 L (50-75) % Lymph % (Auto) 46.3 H (25-40) % Snyder % (Auto) 6.8 (3-14) % Eos % (Auto) 0.8 L (2-4) % Baso % (Auto) 0.3 (0-2) % Neut # (Auto) 6900 (6767-6455) /uL Lymph # (Auto) 6900 H (4200-6479) /uL Snyder # (Auto) 1000 H (0-900) /uL Eos # (Auto) 100 (0-450) /uL Baso # (Auto) 0 (0-100) /uL Sodium 142 (137-145) mmol/L Potassium 3.5 (3.4-5.1) mmol/L Chloride 105 (98-107) mmol/L Carbon Dioxide < 5 L* (22-32) mmol/L BUN 15 (9-20) mg/dL Creatinine 1.12 (0.66-1.25) mg/dL Estimated GFR > 60 (>60) mL/min BUN/Creatinine Ratio 13.4 (6-22) Glucose 205 H (70-100) mg/dL Calcium 9.0 (8.4-10.2) mg/dL Total Bilirubin 0.5 (0.2-1.3) mg/dL AST 33 (17-59) IU/L ALT 48 (<50) IU/L Alkaline Phosphatase 85 (38-126) U/L Total Protein 8.4 H (6.3-8.2) g/dL Albumin 4.9 (3.5-5.0) g/dL Globulin 3.5 (1.7-4.1) g/dL Albumin/Globulin Ratio 1.4 (1.0-2.8) Lipase 61 (23-300) U/L Urine Color Urine Appearance Urine pH (4.5-8.0) Ur Specific [place] (1.000-1.035) Urine Protein (Negative) Urine Glucose (UA) (Negative) g/dL Urine Ketones (NEGATIVE) Urine Occult Blood (Negative) Urine Nitrate (Negative) Urine Bilirubin (NEGATIVE) Urine Urobilinogen (0.2) E.U./dL Ur Leukocyte Esterase (NEGATIVE) Urine RBC (0-5/HPF) Urine WBC (0-5/HPF) Urine Bacteria (None) Hyaline Casts (None) Ur Culture Indicated? U Opiates 300ng/mL cut Negative (Negative) Ur Oxycodone Screen Negative (Negative) Urine Methadone Screen Negative (Negative) Ur Barbiturates Screen Negative (Negative) U Tricyclic Antidepress Negative (Negative) Ur Phencyclidine Scrn Negative (Negative) Ur Amphetamines Screen Negative (Negative) U Methamphetamines Scrn Negative (Negative) Ur MDMA Scrn (Ecstasy) Negative (Negative) U Benzodiazepines Scrn Negative (Negative) Urine Cocaine Screen Negative (Negative) U Marijuana (THC) Screen Positive H (Negative) Ethyl Alcohol < 10 ( - 10) mg/dL SARS-CoV-2 (PCR) (Negative) 12/24/22 12/24/22 Range/Units 14:30 14:42 WBC (4.5-11.0) X10^3/uL RBC (4.5-5.9) X10^6/uL Hgb (13.5-17.5) g/dL Hct (41-53) % MCV (80-100) fL MCH (26-34) PG MCHC (30-36) % RDW (11.6-14.8) % Plt Count (150-400) X10^3/uL Neut % (Auto) (50-75) % Lymph % (Auto) (25-40) % Snyder % (Auto) (3-14) % Eos % (Auto) (2-4) % Baso % (Auto) (0-2) % Neut # (Auto) (7713-8668) /uL Lymph # (Auto) (1963-1541) /uL Snyder # (Auto) (0-900) /uL Eos # (Auto) (0-450) /uL Baso # (Auto) (0-100) /uL Sodium (137-145) mmol/L Potassium (3.4-5.1) mmol/L Chloride (98-107) mmol/L Carbon Dioxide (22-32) mmol/L BUN (9-20) mg/dL Creatinine (0.66-1.25) mg/dL Estimated GFR (>60) mL/min BUN/Creatinine Ratio (6-22) Glucose (70-100) mg/dL Calcium (8.4-10.2) mg/dL Total Bilirubin (0.2-1.3) mg/dL AST (17-59) IU/L ALT (<50) IU/L Alkaline Phosphatase (38-126) U/L Total Protein (6.3-8.2) g/dL Albumin (3.5-5.0) g/dL Globulin (1.7-4.1) g/dL Albumin/Globulin Ratio (1.0-2.8) Lipase (23-300) U/L Urine Color Yellow Urine Appearance Clear Urine pH 6.0 (4.5-8.0) Ur Specific [place] >=1.030 H (1.000-1.035) Urine Protein 1+ H (Negative) Urine Glucose (UA) Negative (Negative) g/dL Urine Ketones Negative (NEGATIVE) Urine Occult Blood 1+ H (Negative) Urine Nitrate Negative (Negative) Urine Bilirubin Negative (NEGATIVE) Urine Urobilinogen 0.2 (0.2) E.U./dL Ur Leukocyte Esterase Negative (NEGATIVE) Urine RBC 1-5/hpf (0-5/HPF) Urine WBC 10-30/hpf H (0-5/HPF) Urine Bacteria None seen (None) Hyaline Casts 5-10/lpf (None) Ur Culture Indicated? Specimen cultured U Opiates 300ng/mL cut (Negative) Ur Oxycodone Screen (Negative) Urine Methadone Screen (Negative) Ur Barbiturates Screen (Negative) U Tricyclic Antidepress (Negative) Ur Phencyclidine Scrn (Negative) Ur Amphetamines Screen (Negative) U Methamphetamines Scrn (Negative) Ur MDMA Scrn (Ecstasy) (Negative) U Benzodiazepines Scrn (Negative) Urine Cocaine Screen (Negative) U Marijuana (THC) Screen (Negative) Ethyl Alcohol ( - 10) mg/dL SARS-CoV-2 (PCR) Negative (Negative) Discharge Plan Departure Patient Disposition: Home Clinical Impression: Seizure Instructions: DI for Seizure Disorder -- Adult Activity Restrictions/Additional Instructions: Please follow-up to have your sutures removed in 5-7 days, these can be removed at urgent, in the emergency department or primary care office. Please follow up with your neurology team. Please call to see if they can move up your appointment, I did speak with Neurology today they recommended that we increase your medication. If he continued to have seizure activity with this medication increased they may have add a 2nd medication. Continue your lamotrigine 100 mg in the morning and increase your dose to 150 mg in the evening. There is a prescription for 50 mg tablets sent that you can add to your evening dose if your medication can not be split or if you need additional lamotrigine. Prescription sent to [facility] in [place]. Wound Care: Keep wound(s) clean and dry. Wash daily with soap and water only. Do not use over the counter products (alcohol or peroxide)on the wounds unless instructed by a physician. If wound condition worsens (increased/expanding redness, developing fluid blisters, or worsening pain), either contact your doctor for an urgent re-assessment , or return to the Emergency Department. Please return for new or worsening seizure activity, recurrent seizures, altered mental status, severe headaches, passing out, persistent vomiting, new chest pain or shortness of breath, signs of infection your suture site or other new or concerning changes. Prescriptions: New lamotrigine 25 mg tablet See Rx Instructions .ROUTE .COMPLEX 14 Days Qty: 30 0RF Rx Instructions: Take 100mg in the am and 150mg in the evening. No Action omeprazole 20 MG capsule,delayed release(DR/EC) 20 mg PO PRN PRNQty: 0 escitalopram oxalate [Lexapro] 10 mg tablet 10 mg PO DAILY Qty: 60 0RF clonazepam 0.5 mg tablet 0.5 mg PO BID PRN (Reason: anxiety) Qty: 30 0RF lamotrigine 100 mg tablet 100 mg PO BID Referrals: Serjio Fernandez MD [Primary Care Provider] - El Baker MD [Non-Staff] - Stand Alone Forms: Patient Portal/API
--- NOTE | 2022-12-24 13:30 | DI.CT.S_ITS ---
PROCEDURE: CT HEAD/BRAIN WO CON INDICATIONS: seizure, lac to head TECHNIQUE: Noncontrast 4.5 mm thick angled axial sections acquired from the foramen magnum to the vertex, with coronal and sagittal reformats. For radiation dose reduction, the following was used: automated exposure control, adjustment of mA and/or kV according to patient size. COMPARISON: [facility], CT, CT HEAD/BRAIN WO CON, 04/09/2021, 8:52. FINDINGS: Image quality: Excellent. CSF spaces: Basal cisterns are patent. No extra-axial fluid collections. Ventricles are normal in size and shape. Brain: No midline shift. No intracranial masses or hemorrhage. Felix-white matter interface is normal. Skull and face: Calvarium and visualized facial bones are intact, without suspicious lesions. Sinuses: Visualized sinuses and mastoids are clear. IMPRESSION: No evidence acute intracranial abnormality. Dictated by: Alli Villanueva M.D. on 12/24/2022 at 13:50 Approved by: Alli Villanueva M.D. on 12/24/2022 at 13:51
--- NOTE | 2022-12-24 13:30 | DI.RAD.S_ITS ---
PROCEDURE: XR CHEST 1V INDICATIONS: seizure TECHNIQUE: One view of the chest was acquired. COMPARISON: , CR, XR CHEST 1V, 04/09/2021, 6:39. FINDINGS: Surgical changes and devices: None. Lungs and pleura: Lungs are clear. No pleural effusions or pneumothorax. Mediastinum: Mediastinal contours appear normal. Heart size is normal. Bones and chest wall: No suspicious bony lesions. Overlying soft tissues appear unremarkable. IMPRESSION: No evidence acute pulmonary process. Dictated by: Alli Villanueva M.D. on 12/24/2022 at 14:54 Approved by: Alli Villanueva M.D. on 12/24/2022 at 14:54
[2022-12-24 13:36] LABS: Add Manual Diff / Slide Review NO; Basophils Absolute Auto 0 /uL (0-100); Basophils Percent Auto 0.3 % (0-2); Eosinophils Absolute Auto 100 /uL (0-450); Eosinophils Percent Auto 0.8 % (2-4); Hematocrit 49.7 % (41-53); Hemoglobin 15.9 g/dL (13.5-17.5); Lymphocytes Absolute Auto 6900 /uL (1100-4500); Lymphocytes Percent Auto 46.3 % (25-40); Mean Corpuscular HGB Conc 32.1 % (30-36); Mean Corpuscular Hemoglobin 30.2 PG (26-34); Mean Corpuscular Volume 94.3 fL (80-100); Monocytes Absolute Auto 1000 /uL (0-900); Monocytes Percent Auto 6.8 % (3-14); Neutrophils Absolute Auto 6900 /uL (1500-7000); Neutrophils Percent Auto 45.8 % (50-75); Platelet Count 264 X10^3/uL (150-400); Red Blood Cell Count 5.27 X10^6/uL (4.5-5.9)
[2022-12-24] MEDS: LORazepam 2 MG/ML INJ 0.5 MG IV (13:40)
[2022-12-24 13:43] LABS: Albumin 4.9 g/dL (3.5-5.0); Albumin Globulin Ratio 1.4 (1.0-2.8); Alkaline Phosphatase 85 U/L (38-126); Aspartate Aminotransferase 33 IU/L (17-59); BUN Creatinine Ratio 13.4 (6-22); Bilirubin Total 0.5 mg/dL (0.2-1.3); Blood Urea Nitrogen 15 mg/dL (9-20); Chloride 105 mmol/L (98-107); Estimated Glomerular Filt Rate > 60 mL/min (>60); Ethanol (ETOH) < 10 mg/dL; Globulin 3.5 g/dL (1.7-4.1); Glucose 205 mg/dL (70-100); HEMOLYSIS < 15 (0-50); Lipase 61 U/L (23-300); Potassium 3.5 mmol/L (3.4-5.1); Sodium 142 mmol/L (137-145); Total Protein 8.4 g/dL (6.3-8.2)
[2022-12-24 13:50] LABS: Alanine Aminotransferase 48 IU/L (<50)
[2022-12-24 13:54] LABS: Carbon Dioxide < 5 mmol/L (22-32)
[2022-12-24] MEDS: ONDANSETRON 4 MG/2 ML INJ IV (14:34)
[2022-12-24] MEDS: LACTATED RINGERS 1,000 ML 1000 ML IV (14:35)
[2022-12-24] MEDS: LIDOCAINE 1% (PF) 5 ML INJ (14:53)
[2022-12-24 15:02] LABS: COVID19 -Nasal RAPID Negative (Negative)
[2022-12-24 15:15] LABS: Appearance Urine UA CLEAR; Bilirubin Urine UA NEGATIVE (NEGATIVE); Color Urine UA YELLOW; Glucose Urine UA NEGATIVE (Negative); Ketones Urine UA NEGATIVE (NEGATIVE); Leukocyte Esterase Urine UA NEGATIVE (NEGATIVE); Nitrite Urine UA NEGATIVE (Negative); Occult Blood Urine UA 1+ (Negative); Protein Urine UA 1+ (Negative); Specific Gravity Urine UA >=1.030 (1.000-1.035); UR Morphine/Opiate cutoff 300 Negative (Negative); Ur Creatinine Normal (Normal); Ur Specific Gravity Normal (Normal); Urine Amphetamines Negative (Negative); Urine Barbiturates Negative (Negative); Urine Benzodiazepines Negative (Negative); Urine Cocaine Negative (Negative); Urine MDMA Negative (Negative); Urine Methadone Negative (Negative); Urine Methamphetamines Negative (Negative); Urine Oxycodone Negative (Negative); Urine Phencyclidine Negative (Negative); Urine Tetrahydrocannabinol Positive (Negative); Urine Tricyclic Antidepressant Negative (Negative); Urine pH Normal (Normal); Urobilinogen Urine UA 0.2 E.U./dL (0.2)
[2022-12-24 15:31] LABS: Bacteria Urine None Seen; Hyaline Casts Urine 5-10/LPF; RBC Urine 1-5/HPF (0-5/HPF); WBC Urine 10-30/HPF (0-5/HPF)
[2022-12-24 15:32] LABS: Culture Indicated Urine Specimen Cultured
[2022-12-28 16:41] LABS: Lamotrigine Lamictal 2.3 ug/mL (2.0-20.0)
== END 2022-12-24 16:15 | disposition home or self-care (01) ==
PROVIDERS: Emergency Provider Emergency Medicine; PCP Family Medicine
DX: G40.909 Epilepsy, unspecified, not intractable, without status epilepticus (principal); S01.111A Laceration without foreign body of right eyelid and periocular area, initial encounter; Z20.822 Contact with and (suspected) exposure to COVID-19
CPT/HCPCS: 70450; 71045; 80053; 80175; 80305; 80320; 81001; 83690; 85025; 87086; 87635; 96361; 96374; 96375; 99284; C9803; J2060; J2405

== ENCOUNTER → 2023-06-05 09:55 | Outpatient (CLI) | payer OTHER, MEDICAID, SELFPAY ==
[2023-06-08 11:14] LABS: Lamotrigine Lamictal 1.6 ug/mL (2.0-20.0)
[2023-06-09 20:00] LABS: Lacosamide 4.6 ug/mL (5.0-10.0)
== END ==
PROVIDERS: PCP Family Medicine; Referring Provider Psychiatry & Neurology Neurology; Visit Provider Psychiatry & Neurology Neurology
DX: G40.109 Localization-related (focal) (partial) symptomatic epilepsy and epileptic syndromes with simple partial seizures, not intractable, without status epilepticus (principal)
CPT/HCPCS: 36415; 80175; 80235

== ENCOUNTER 2023-09-02 13:16 | Day surgery (SDC) | payer OTHER, MEDICAID, SELFPAY ==
--- NOTE | 2023-09-02 | PATH_ITS ---
[facility] Accession Number: [id number] No. of containers..01 Tissue . 01 Material submitted: . colon - SIGMOID POLYP . 01 Diagnosis: Sigmoid Colon, Biopsy: Hyperplastic polyp. Negative for dysplasia and malignancy. MRV 09/10/2023 1402 Local . 01 Electronically signed: . Nurys Tenorio MD, Pathologist NPI- [id number] . 01 Gross description: . SIGMOID POLYP: Received in formalin is 1 fragment(s) of spears, soft tissue measuring 1.0 x 0.5 x 0.4 cm submitted entirely in 1 cassette(s) /KRISSY 09/03/2023 2226 Local . 01 Pathologist provided ICD-10: K63.5 . 01 CPT . 281023 Specimen Comment: A courtesy copy of this report has been sent to [phone] Performed at: 01 [facility] [address] [place] [address], [place], [place] [id number] MD Jose Enrique Galvan MD Phone: [phone]
[2023-09-02 13:41] VITALS: BP 162/90; PULSE 62; RESP 16; TEMP 36.4; O2SAT 100; BMI 26.9
[2023-09-02] MEDS: LACTATED RINGERS 1,000 ML 150 ML IV (13:50)
--- NOTE | 2023-09-02 14:44 | P.HP_ITS ---
History of Present Illness History of Present Illness Date Patient Seen: 09/02/23 Time Patient Seen: 14:45 Chief complaint: SDC Narrative: Sebastien is a 58-year-old man here for colonoscopy. He has never had 1 before. No family history of colon cancer. [facility]LY [facility] Medical History Ascending aortic aneurysm Compression fracture of thoracic vertebra Epilepsy GERD (gastroesophageal reflux disease) Hallucinogenic mushrooms use disorder, mild Marijuana smoker Multiple lung nodules on CT Pain of right heel Tobacco use (08/21/16) Surgical History H/O hernia repair Status post appendectomy Family History Father No problems noted. Social History household members: spouse Smoking Status: Current every day smoker alcohol intake: never Meds Home Medications and Allergies Home Medications Medication Instructions Recorded Confirmed Type omeprazole 20 mg capsule,delayed 20 mg PO PRN PRN gerd ##0 09/09/17 09/02/23 History release lacosamide 200 mg tablet (Vimpat) 200 mg PO BID #60 tabs 04/01/23 09/02/23 Rx lamotrigine 100 mg tablet 100 mg PO DAILY #60 tabs 04/01/23 09/02/23 Rx trazodone 50 mg tablet 50 mg PO BEDTIME PRN insomnia #60 06/21/23 09/02/23 Rx tabs trazodone 150 mg tablet 150 mg PO BEDTIME PRN insomnia #30 08/18/23 09/02/23 Rx tabs Allergies Allergy/AdvReac Type Severity Reaction Status Date / Time levetiracetam [From Keppra] Allergy Severe Gastrointestinal Verified 08/18/23 14:19 Upset Exam Vital Signs (past 8 hours): - 09/02/23 13:41 Temperature 97.6 F Pulse Rate 62 Respiratory Rate 16 Blood Pressure 162/90 H Pulse Oximetry 100 Oxygen Delivery Method Room Air Oxygen Delivery Method Room Air Const General: healthy appearing Assessment & Plan Assessment and plan (1) Colon cancer screening: Status: Acute Plan We reviewed the risks and benefits of colonoscopy for colon cancer screening and he would like to proceed.
--- NOTE | 2023-09-02 15:59 | PM.OP.COLON ---
Operative Date/Time/Diagnoses Date of procedure: 09/02/23 Time of procedure: 15:59 Pre-op diagnosis: Colon cancer screening Post-op diagnosis: same Procedure & Clinicians Study performed: Colonoscopy Same procedure as scheduled: Yes Surgeon: Tristin Borges Procedure Notes Procedure in detail: Surgeon: Tristin Borges MD Anesthesia: Michael Francis CRNA Procedure: The patient was brought to the endoscopy suite, placed in left lateral decubitus position. The patient was connected to monitoring devices. A time-out was performed. Sedation was administered. Once the patient was adequately sedated, a digital rectal exam was performed and was normal. The scope was then inserted and advanced to the cecum where the appendiceal orifice was identified and photographed. The scope was then slowly withdrawn over greater than 6 minutes. The mucosa was thoroughly inspected. There was a 1 cm polyp in the sigmoid colon removed with a cold snare. Hemostasis was observed. The scope was retroflexed in the rectum. No other abnormalities were noted. The scope was straightened and removed. The patient was awakened and brought to recovery. Scope withdrawal time: 10 minutes Sedation time: 29 minutes EBL: 5 mL Findings: 1 cm sigmoid colon polyp Post-procedure Disposition: PACU
[2023-09-02 16:00] VITALS: BP 151/81; PULSE 60; RESP 20; TEMP 36.8; O2SAT 97
[2023-09-02 16:05] VITALS: BP 160/87; PULSE 68; RESP 12; TEMP 36.8; O2SAT 96
[2023-09-02 16:12] VITALS: BP 151/88; PULSE 57; RESP 15; O2SAT 98
== END 2023-09-02 16:36 | disposition home or self-care (01) ==
PROVIDERS: PCP Family Medicine; Referring Provider Surgery; Visit Provider Surgery
PROC: 0DJD8ZZ Inspection of Lower Intestinal Tract, Via Natural or Artificial Opening Endoscopic (ICD-10-PCS; CPT 45378; principal; 2023-09-02 14:15)
DX: Z12.11 Encounter for screening for malignant neoplasm of colon (principal); K63.5 Polyp of colon
CPT/HCPCS: 45385; J2405; J2704

== ENCOUNTER → 2023-11-09 09:25 | Outpatient (CLI) | payer OTHER, MEDICAID, SELFPAY ==
[2023-11-09 10:35] LABS: Add Manual Diff / Slide Review NO; Basophils Absolute Auto 0 /uL (0-100); Basophils Percent Auto 0.3 % (0-2); Eosinophils Absolute Auto 100 /uL (0-450); Eosinophils Percent Auto 1.7 % (2-4); Hematocrit 46.5 % (41-53); Hemoglobin 15.7 g/dL (13.5-17.5); Lymphocytes Absolute Auto 1800 /uL (1100-4500); Lymphocytes Percent Auto 34.5 % (25-40); Mean Corpuscular HGB Conc 33.7 % (30-36); Monocytes Absolute Auto 400 /uL (0-900); Monocytes Percent Auto 8.6 % (3-14); Neutrophils Absolute Auto 2800 /uL (1500-7000); Neutrophils Percent Auto 54.9 % (50-75); Platelet Count 243 X10^3/uL (150-400); Red Blood Cell Count 5.05 X10^6/uL (4.5-5.9); Red Cell Distribution Width 13.3 % (11.6-14.8); White Blood Cell Count 5.1 X10^3/uL (4.5-11.0)
[2023-11-09 11:00] LABS: Alanine Aminotransferase 25 IU/L (<50); Albumin 4.6 g/dL (3.5-5.0); Albumin Globulin Ratio 1.4 (1.0-2.8); Alkaline Phosphatase 74 U/L (38-126); Aspartate Aminotransferase 24 IU/L (17-59); BUN Creatinine Ratio 16.9 (6-22); Bilirubin Total 0.7 mg/dL (0.2-1.3); Blood Urea Nitrogen 15 mg/dL (9-20); Calcium 9.3 mg/dL (8.4-10.2); Carbon Dioxide 25 mmol/L (22-32); Chloride 104 mmol/L (98-107); Estimated Glomerular Filt Rate > 60 mL/min (>60); Globulin 3.4 g/dL (1.7-4.1); Glucose 100 mg/dL (70-100); HEMOLYSIS < 15 (0-50); Potassium 4.5 mmol/L (3.4-5.1); Sodium 140 mmol/L (137-145)
[2023-11-09 11:03] LABS: HEMOLYSIS < 15 (0-50); Iron 114 ug/dL (49-181)
[2023-11-09 11:14] LABS: Percent Iron Saturation 33 % (20-50); Total Iron Binding Capacity 348 ug/dL (261-462); Transferrin 283 mg/dL (206-381)
[2023-11-09 11:33] LABS: Ferritin 19 ng/mL (18-464)
[2023-11-11 12:37] LABS: Lamotrigine Lamictal 1.6 ug/mL (2.0-20.0)
== END ==
LOC: LAB 09:29
PROVIDERS: PCP Family Medicine; Referring Provider Psychiatry & Neurology Neurology; Visit Provider Psychiatry & Neurology Neurology
DX: G40.109 Localization-related (focal) (partial) symptomatic epilepsy and epileptic syndromes with simple partial seizures, not intractable, without status epilepticus (principal); E61.1 Iron deficiency; Z51.81 Encounter for therapeutic drug level monitoring
CPT/HCPCS: 36415; 80053; 80175; 80185; 80186; 80235; 82728; 83540; 83550; 85025

== ENCOUNTER → 2023-11-16 09:31 | Outpatient (CLI) | payer OTHER, MEDICAID, SELFPAY ==
[2023-11-18 13:11] LABS: Lamotrigine Lamictal 3.3 ug/mL (2.0-20.0)
[2023-11-22 20:45] LABS: Lacosamide 7.6 ug/mL (5.0-10.0)
== END ==
PROVIDERS: PCP Family Medicine; Referring Provider Psychiatry & Neurology Neurology; Visit Provider Psychiatry & Neurology Neurology
DX: G40.109 Localization-related (focal) (partial) symptomatic epilepsy and epileptic syndromes with simple partial seizures, not intractable, without status epilepticus (principal)
CPT/HCPCS: 36415; 80175; 80235

== ENCOUNTER → 2023-12-13 08:53 | Outpatient (CLI) | payer OTHER, MEDICAID, SELFPAY ==
[2023-12-13 11:07] LABS: Cholesterol 223 mg/dL (140-199); HDL Cholesterol 41 mg/dL (40-60); LDL Cholesterol Calculated 153 mg/dL (<100); Triglycerides 144 mg/dL (35-150)
[2023-12-13 11:30] LABS: Prostate Specific Antigen Scrn 5.23 ng/mL (0.1-4.0)
[2023-12-14 07:48] LABS: Apolipoprotein B 117 mg/dL (<90)
[2023-12-16 04:39] LABS: Lamotrigine Lamictal 2.3 ug/mL (2.0-20.0)
[2023-12-18 13:09] LABS: Lacosamide 7.6 ug/mL (5.0-10.0)
== END ==
PROVIDERS: PCP Family Medicine; Referring Provider Family Medicine; Visit Provider Family Medicine
DX: G40.109 Localization-related (focal) (partial) symptomatic epilepsy and epileptic syndromes with simple partial seizures, not intractable, without status epilepticus (principal); H53.9 Unspecified visual disturbance; I71.21 Aneurysm of the ascending aorta, without rupture; G40.909 Epilepsy, unspecified, not intractable, without status epilepticus; G47.00 Insomnia, unspecified; Z12.5 Encounter for screening for malignant neoplasm of prostate
CPT/HCPCS: 36415; 80061; 80175; 80235; 82172; G0103

== ENCOUNTER 2024-03-24 12:38 | Emergency (ER) | payer OTHER, MEDICAID, SELFPAY ==
[2024-03-24 12:55] VITALS: BP 155/81; PULSE 74; RESP 16; TEMP 37.1; O2SAT 95; BMI 28.1
--- NOTE | 2024-03-24 13:22 | ED_ITS ---
HPI - Recheck/Abnormal Lab/Rx <Sumeet Quiles PA-C - Last Filed: 03/24/24 15:21> General Chief Complaint: Recheck/Abnormal Lab/Rx Stated Complaint: had recent procedure, pain, sweating Time Seen by Provider: 03/24/24 13:15 Source: patient Mode of arrival: Ambulatory History of Present Illness HPI narrative: This is a 58-year-old male presents emergency department due to continued pain after dental procedure 4 days ago where he had the entirety of his upper teeth pulled for dentures. States that he was given pain medication but has not lasted him. He denies any fevers, difficulty breathing or swallowing, or any other concerning signs or symptoms. Patient attempted to call his dentist office as well as primary care provider without any answered. Related Data Home Medications Medication Instructions Recorded Confirmed omeprazole 20 mg capsule,delayed 20 mg PO PRN PRN gerd ##0 09/09/17 12/07/23 release diazepam 20 mg/2 spray (10 mg/0.1 20 mg intranasal ONCE 12/07/23 12/07/23 mL x 2) nasal spray (Valtoco) escitalopram oxalate 5 mg tablet 5 mg PO DAILY 12/07/23 12/07/23 Previous Rx's Medication Instructions Recorded lacosamide 200 mg tablet (Vimpat) 200 mg PO BID #60 tabs 04/01/23 lamotrigine 100 mg tablet 100 mg PO DAILY #60 tabs 04/01/23 hydroxyzine HCl 25 mg tablet 25 mg PO BEDTIME PRN insomnia #60 12/07/23 tabs trazodone 50 mg tablet See Rx Instructions PO BEDTIME PRN 12/07/23 insomnia #120 tabs rosuvastatin 5 mg tablet 5 mg PO DAILY #90 tabs 03/10/24 hydrocodone 7.5 mg-acetaminophen 1 tab PO Q6H PRN pain #20 tabs 03/24/24 325 mg tablet lidocaine HCl 2 % mucosal solution 1 applic mucous membrane BID PRN 03/24/24 (Lidocaine Viscous) pain #600 mL prednisone 20 mg tablet 40 mg (2 x 20 mg) PO DAILY #10 tabs 03/24/24 Allergies Allergy/AdvReac Type Severity Reaction Status Date / Time levetiracetam [From [facility]] Allergy Severe Gastrointestinal Verified 03/24/24 13:02 Upset Review of Systems <Sumeet Quiles PA-C - Last Filed: 03/24/24 15:21> Review of Systems Narrative: GENERAL: Denies chills, fatigue, malaise, fever, sweats. HEENT: Reports dental pain, Denies sinus pain, ear pain, sore throat, difficulty swallowing, dizziness. RESPIRATORY: Denies dyspnea, cough, wheezing, hemoptysis, sputum. CARDIOVASCULAR: Denies chest pain, palpitations, orthopnea, edema, GASTROINTESTINAL: Denies nausea, vomiting, abdominal pain, diarrhea, constipation, melena. : Denies dysuria, frequency, incontinence, hematuria, urinary retention. MUSCULOSKELETAL: denies weakness, joint pain, or bony pain SKIN: Denies rash, skin lesions, or other NEUROLOGIC: Denies weakness, headache, numbness, change in speech, confusion, seizures, incoordination. PSYCHIATRIC: No concerning psychosocial issues. 12 point review of systems is negative except for those stated above Patient History <Sumeet Quiels PA-C - Last Filed: 03/24/24 15:21> Medical History Ascending aortic aneurysm Compression fracture of thoracic vertebra Epilepsy GERD (gastroesophageal reflux disease) Hallucinogenic mushrooms use disorder, mild Marijuana smoker Multiple lung nodules on CT Pain of right heel Tobacco use (08/21/16) Surgical History H/O hernia repair Status post appendectomy Family History Father No problems noted. Social History household members: spouse Smoking Status: Former smoker alcohol intake: never Smoking Status: Former smoker alcohol intake frequency: other Substance Use Type: marijuana Exam <Sumeet Quiles PA-C - Last Filed: 03/24/24 15:21> Narrative Exam Narrative: GENERAL: Well-developed patient, in mild distress. HEAD: Atraumatic. Normocephalic. EYES: Pupils equal round and reactive. Extraocular motions intact. No scleral icterus. No injection or drainage. ENT: Nose without bleeding, purulent drainage. Throat without erythema, tonsillar hypertrophy or exudate. Airway patent. NECK: Trachea midline. Non tender EXTREMITIES: No edema or joint tenderness. NEURO: AOx3. SKIN: No rash or erythema of visible areas Initial Vital Signs Initial Vital Signs: Vital Signs Temperature 98.7 F 03/24/24 12:55 Pulse Rate 74 03/24/24 12:55 Respiratory Rate 16 03/24/24 12:55 Blood Pressure 155/81 H 03/24/24 12:55 Pulse Oximetry 95 03/24/24 12:55 Oxygen Delivery Method Room Air 03/24/24 12:55 <DO Marija Paez Last Filed: 03/25/24 10:19> Initial Vital Signs Initial Vital Signs: Vital Signs Temperature 98.7 F 03/24/24 12:55 Pulse Rate 74 03/24/24 12:55 Respiratory Rate 16 03/24/24 12:55 Blood Pressure 155/81 H 03/24/24 12:55 Pulse Oximetry 95 03/24/24 12:55 Oxygen Delivery Method Room Air 03/24/24 12:55 Course <Sumeet Quiles PA-C - Last Filed: 03/24/24 15:21> Vital Signs Vital signs: Vital Signs - 8 hr 03/24/24 12:55 Temperature 98.7 F Pulse Rate 74 Respiratory Rate 16 Blood Pressure 155/81 H Pulse Oximetry 95 Oxygen Delivery Method Room Air <DO Marija Paez Last Filed: 03/25/24 10:19> Vital Signs Vital signs: Vital Signs - 8 hr 03/24/24 12:55 Temperature 98.7 F Pulse Rate 74 Respiratory Rate 16 Blood Pressure 155/81 H Pulse Oximetry 95 Oxygen Delivery Method Room Air MDM - Recheck/Abnormal Lab/Rx <ROSCOE Kraft Last Filed: 03/24/24 15:21> MDM Narrative Medical decision making narrative: ED course: This is a 58-year-old male presents to the emergency department for pain relief after recent dental procedure. Patient states he was unable to speak with his dentist office or primary care provider as they are both closed today. We will prescribe enough pain medication to cover him until Wednesday until he was able to follow up with his dentist. Denies any fevers or any other concerns for any kind of infection. CC: Dental pain Complicating co-morbidities: History of epilepsy Data collected from: Previous notes Medical records reviewed: Patient was last seen a year ago due to a seizure. History of epilepsy as well as anxiety. History of tobacco use. Differential considered, but not limited to: Postprocedure dental pain, in fection Exam documented above, pertinent findings include: No abnormalities Lab Test results independently reviewed as above. Pertinent findings: None obtained Imaging studies independently reviewed: None obtained Scores Used: None MIPS Elements: None Consultations: None Treatments: None Re-evaluations: None Discussion: Discussed plan with the patient was comfortable with the plan Diagnosis: Postprocedural pain Disposition: see below, along with detailed discharge instructions that have been reviewed with patient as well as indications for ED re-evaluation and additional outpatient follow up Discharge Plan Departure Patient Disposition: Home Clinical Impression: Other acute postprocedural pain Activity Restrictions/Additional Instructions: Thank you for coming to the [facility] Department today. The medications prescribed she will cover you until Wednesday. Please follow up with the dentist for further pain management. Please return to the emergency department if you develop any difficulty breathing or swallowing, fevers, or any other concerning signs or symptoms. I hope you feel better soon. Please follow up with your primary care provider within a week if your symptoms continue. If you do not have a primary care provider please contact the [facility] Resource line at [phone]. They will ask some questions about your medical history and help you get set up with a provider in the community. Prescriptions: New hydrocodone-acetaminophen 7.5-325 mg tablet 1 tab PO Q6H PRN (Reason: pain) Qty: 20 0RF lidocaine HCl [Lidocaine Viscous] 2 % solution 1 applic mucous membrane BID PRN (Reason: pain) Qty: 600 0RF prednisone 20 mg tablet 40 mg PO DAILY Qty: 10 0RF No Action omeprazole 20 MG capsule,delayed release(DR/EC) 20 mg PO PRN PRN (Reason: gerd) Qty: 0 lamotrigine 100 mg tablet 100 mg PO DAILY Qty: 60 0RF lacosamide [Vimpat] 200 mg tablet 200 mg PO BID Qty: 60 0RF rosuvastatin 5 mg tablet 5 mg PO DAILY Qty: 90 3RF escitalopram oxalate 5 mg tablet 5 mg PO DAILY Valtoco 20 mg/2 spray (10mg/0.1mL x2) spray,non-aerosol 20 mg intranasal ONCE Rx Instructions: administer 1 spray into each nostril; as a single dose hydroxyzine HCl 25 mg tablet 25 mg PO BEDTIME PRN (Reason: insomnia) Qty: 60 1RF trazodone 50 mg tablet See Rx Instructions PO BEDTIME PRN (Reason: insomnia) Qty: 120 2RF Rx Instructions: t1-2 tabs po qhs as needed for insomnia Referrals: Serjio Fernandez MD [Primary Care Provider] - Stand Alone Forms: Patient Portal/API ED Sign-out <Asuncion Baker DO - Last Filed: 03/25/24 10:19> Cosign ED Attending Cosrinaature Attestation: I was immediately available in the department for consultation.
[2024-03-24 15:27] VITALS: BP 148/67; PULSE 81; RESP 18; TEMP 36.7; O2SAT 97
== END 2024-03-24 15:27 | disposition home or self-care (01) ==
PROVIDERS: Emergency Provider Physician Assistant Medical; PCP Family Medicine
DX: G89.18 Other acute postprocedural pain (principal)
CPT/HCPCS: 99281; 99283

== ENCOUNTER → 2024-05-01 11:45 | Outpatient (CLI) | payer OTHER, MEDICAID, SELFPAY ==
[2024-05-03 12:36] LABS: Lamotrigine Lamictal 5.5 ug/mL (2.0-20.0)
[2024-05-06 09:12] LABS: Lacosamide 10.2 ug/mL (5.0-10.0)
== END ==
PROVIDERS: PCP Family Medicine; Referring Provider Psychiatry & Neurology Neurology; Visit Provider Psychiatry & Neurology Neurology
DX: G40.109 Localization-related (focal) (partial) symptomatic epilepsy and epileptic syndromes with simple partial seizures, not intractable, without status epilepticus (principal)
CPT/HCPCS: 36415; 80175; 80235

== ENCOUNTER → 2024-06-15 09:49 | Outpatient (CLI) | payer OTHER, MEDICAID, SELFPAY ==
[2024-06-20 09:12] LABS: Lamotrigine Lamictal 4.1 ug/mL (2.0-20.0)
== END ==
PROVIDERS: PCP Family Medicine; Referring Provider Psychiatry & Neurology Neurology; Visit Provider Psychiatry & Neurology Neurology
DX: G40.109 Localization-related (focal) (partial) symptomatic epilepsy and epileptic syndromes with simple partial seizures, not intractable, without status epilepticus (principal)
CPT/HCPCS: 36415; 80175; 80235